=== PATIENT | male | born 1945 | race Caucasian/White ===

== ENCOUNTER 2025-02-13 17:52 | Inpatient (IN) | payer OTHER, MEDICARE ==
[~2025-02-13] VITALS: Ht 170.2 cm; Wt 57.7 kg
[2025-02-13 22:36] VITALS: BP 145/82; PULSE 51; RESP 20; TEMP 97.5; O2SAT 95
[2025-02-13] MEDS ORDERED: mag hydrox/Alum hydrox/simeth 30ml oral suspension PO PRN (23:40)
[2025-02-13] MEDS ORDERED: potassium Cl 20 mEq SR tablet PO PRN ×2 (23:40)
[2025-02-13] MEDS ORDERED: ondansetron/PF 4mg/2ml inj IV PRN (23:40)
[2025-02-13] MEDS ORDERED: potassium Cl 40MEQ/1/2NS 520ml 520 ML IV PRN (23:40)
[2025-02-13] MEDS ORDERED: magnesium sulf-water 2g/50mL 50 ML IV PRN (23:40)
[2025-02-13] MEDS ORDERED: magnesium sulf-water 4G/100mL 100 ML IV PRN (23:40)
[2025-02-13] MEDS ORDERED: magnesium hydroxide 30ml (MOM) UD suspension PO PRN (23:40)
[2025-02-13] MEDS ORDERED: magnesium Cl slow-release 64mg tablet PO PRN (23:40)
--- NOTE | 2025-02-13 23:55 | HISTORY AND PHYSICAL-Residence ---
History & Physical Providers to CC Resident Creating Document: EDEN MONROY, KATHY ~ History of Present Illness Reason for Admit\Complaint: Chest pain History of Present Illness This is a 79-year-old male with a history of hypertension, hyperlipidemia, borderline diabetes, GERD was transferred from [place] for angina. 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 On Tuesday morning he left home at 130 and was driving when he had the 1st episode of chest pain, he describes it as more pressure-like sensation, something pushing down his chest, graded as 8 / 10, lasted about 30 minutes, nonradiating. The chest pain was associated with nausea and diaphoresis. He took two Tums. He completed his work that day and he was feeling fine and went back to work on Tuesday. After he returned home from work on Tuesday at 2:30 p.m. he had another episode of similar chest pressure which was associated with cold sweats and nausea, this time it was more severe and lasted 2 hours. He then decided to go to the hospital. He denies any similar episodes before these events. He denies any shortness of breaths, PND, orthopnea. Denies any leg swellings, palpitations, lightheadedness. Denies any fever, cough. PCP is Dr. Mercado at [facility]. Course at [facility]: He was evaluated for chest pain, troponins were negative, EKG showed first-degree AV block. Lexiscan showed global ischemia in mg coronary artery. Chest x-ray showed mild cardiomegaly. Echo showed normal systolic function, ejection fraction 60-65%, dilated right ventricle, dilated right atrium. He had a stress test in 2016 before his shoulder surgery which was normal Allergies: Coded Allergies: No Known Allergies (Unverified , 02/13/25) Past Medical History Past Medical History Hypertension, on lisinopril 30 mg Hyperlipidemia, on pravastatin 40 mg, could not tolerate atorvastatin Borderline diabetes, currently not on any medications GERD, on omeprazole as needed Past Surgical History Surgical History Comment Right shoulder replacement in 2016 Umbilical hernia repair in 2019 Family history Brother-CAD with two stents Brother diabetes mellitus Sister breast cancer Past Social History Social History Comment Quit smoking 30 years ago Drinks alcohol rarely No history of drug use He is a , retired, currently helping his friend PCP is Dr. Mercado at [facility] Lives with his at home Functionally independent ROS Constitutional: Denies: no symptoms reported, see HPI, chills, diaphoresis, fever, malaise, weakness, other Eyes: Denies: no symptoms reported, see HPI, pain, discharge, blurred vision, double vision, itching, photophobia, redness, tearing, other ENT: Denies: no symptoms reported, see HPI, ear pain, ear bleeding, ear discharge, hearing loss, ear ringing, nose pain, nose bleeding, nose congestion, nose discharge, throat pain, throat swelling, voice change, mouth pain, mouth bleeding, mouth swelling, other Respiratory: Denies: no symptoms reported, see HPI, cough, orthopnea, shortness of breath, SOB with exertion, SOB at rest, stridor, wheezing, hemoptysis, pain with breathing, other Cardiovascular: Reports: chest pain Gastrointestinal: Denies: no symptoms reported, see HPI, abdomen distended, abdominal pain, nausea, vomiting, diarrhea, constipated, melena, hematemesis, hematochezia, rectal bleeding, rectal pain, dysphagia, poor appetite, poor fluid intake, other Genitourinary: Denies: no symptoms reported, see HPI, burning, discharge, dysuria, frequency, flank pain, hematuria, incontinence, pain, decreased urine output, urgency, other Neurological: Denies: no symptoms reported, see HPI, speech problem, headache, dizziness, fainting, tingling, left sided numbness, right sided numbness, left sided weakness, right sided weakness, problems walking, unable to move lower ext, unable to move upper ext, petit mal seizures, tonic-clonic seizures, cognitive dysfunction, other Musculoskeletal: Denies: no symptoms reported, see HPI, pain, swelling, back pain, gout, joint pain, joint swelling, muscle pain, muscle swelling, muscle stiffness, neck pain, other Exam Vitals: Vital Signs Date Time Temp Pulse Resp B/P (MAP) Pulse Ox O2 Delivery O2 Flow Rate FiO2 02/13/25 23:14 51 General: General examination: Awake, alert, oriented, not in acute distress HEENT: Normocephalic and atraumatic. Neck: Trachea is in midline. No masses or JVD Chest: Bilateral normal breath sounds. No crackles, rhonchi or wheezes Cardiovascular: Regular rate and rhythm. No rubs or murmurs Abdomen: Soft, no tenderness, no guarding, no rigidity Bowel sounds present Extremities: No edema, no cyanosis, no clubbing. Central Nervous System: No gross sensory or motor deficits. CN II to XII grossly intact Skin: Warm and dry with findings as mentioned above. Diagnostic Data Last Recorded Lab Results: 02/14/2531 02/14/2531 Advance Care Planning Advanced Care plannin - 30 Minutes (I spent 17 minutes in discussing various resuscitative measures, the patient chose to be full code.) Additional Plan Assessment This is a 79-year-old male with history of hypertension, hyperlipidemia, diabetes, GERD was transferred from [facility] for chest pain. Troponins negative, EKG showed AV block. Lexiscan was positive for global ischemia. Plan Acute CAD Heart score-6 Two episodes of chest pain Troponins negative EKG showed first-degree AV block Lexiscan showed global ischemia Heart healthy diet, NPO from midnight. Telemetry monitoring. Patient received aspirin 324 mg while he was at [facility] Started on aspirin 81 mg daily. Patient has a history of myopathy with a atorvastatin, continue home medication pravastatin 40 mg Started carvedilol 3.125 b.i.d.. Consult Cardiology tomorrow for possible cardiac catheterization Hypertension Blood pressure is in the normal range Continue home medication lisinopril 30 mg daily Hyperlipidemia Lipid panel-at [facility] showed total cholesterol 174, HDL 43, LDL 117 triglycerides 136 Continue home medication pravastatin 40 mg once the med rec is done Diabetes mellitus A1c 6.7 Started on low-dose insulin protocol History of GERD Continue pantoprazole 40 mg p.o. daily Code status: Full code DVT prophylaxis: None, possible cardiac catheterization tomorrow. GI prophylaxis: Pantoprazole Diet: Heart healthy diet, NPO from midnight Lines/tubes: Peripheral IV line Eden Monroy M.D PGY2 Date of Service: Feb 13, 2025 Billing Provider: MENDEL PÉREZ MD Addendum Attestation I agree with the residents assessment and plan as below: Plan: start asa and statin cardiology consult admit to tele restart lisinopril CCT 50 min using HIPPA compliant A/V technology EDEN MONROY, RES Feb 13, 2025 23:55 MENDEL PÉREZ MD Feb 14, 2025 10:51
[2025-02-14] VITALS (12 sets, daily range): BP systolic 105–123; BP diastolic 70–77; PULSE 50–58; RESP 14–20; TEMP 96.9–98.5; O2SAT 92–95
[2025-02-14 00:29] LABS: APTT 29 SECONDS (22-32); INR 1.1 INR
[2025-02-14 01:15] LABS: PRO BRAIN NATRIURETIC PEPTIDE 36.0 PG/ML (0-450)
--- NOTE | 2025-02-14 01:15 | ELECTROCARDIOGRAPH REPORT ---
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 George Valenzuela Measurements Intervals [place] Rate: 55 P: 36 OH: 275 QRS: -31 QRSD: 99 T: 51 QT: 430 QTc: 412 Interpretive Statements Sinus rhythm Prolonged OH interval Left axis deviation Low voltage, precordial leads Electronically Signed On 02-14-2025 9:50:[address] George Valenzuela Please click the below link to view image of tracing.
[2025-02-14 06:16] LABS: CREATININE 0.97 MG/DL (0.60-1.10); TOTAL CARBON DIOXIDE 29.3 MMOL/L (24-32); eCRCL 52 ML/MIN; eGFR 75 ML/MIN
[2025-02-14 06:24] LABS: MEAN PLATELET VOLUME 8.3 FL (7.4-10.4); RED CELL DISTRIBUTION WIDTH 14.7 % (11.5-14.5)
[2025-02-14] MEDS: docusate sod 100mg capsule PO SCH (07:34)
[2025-02-14] MEDS: aspirin 81mg, enteric-coated 1 TAB TABLET.DR PO SCH (07:34)
[2025-02-14] MEDS: PERFLUTREN PROTEIN-A MICROSPHR (Optison) 0.22 MG/ML 3ML VIAL IV ONE (07:45)
[2025-02-14] MEDS: K and/or MAG REPLACEMENT MC SCH (08:00)
[2025-02-14] MEDS ORDERED: carvedilol 6.25mg tablet PO SCH (08:00)
[2025-02-14] MEDS ORDERED: LISI20TA28 PO (09:20)
[2025-02-14] MEDS ORDERED: ATOR40TA PO (09:20)
[2025-02-14] MEDS ORDERED: FAMO20TA47 PO (09:20)
[2025-02-14 10:05] LABS: LEUKOCYTE ESTERASE ,URINE NEGATIVE (Neg); NITRITES, URINE NEGATIVE (Neg); OCCULT BLOOD,URINE TRACE-INTACT (Neg)
[2025-02-14 10:10] LABS: UA COLLECTION TYPE CLN CATCH MIDSTREAM
[2025-02-14 10:12] LABS: MUCUS STRANDS NONE SEEN /LPF (Neg); SQUAMOUS EPITHELIAL CELL,UR NONE SEEN /LPF (FEW)
[2025-02-14 10:24] LABS: URINE AMPHETAMINE SCREEN NEGATIVE (Neg); URINE BARBITUATE SCREEN NEGATIVE (Neg); URINE BENZODIAZEPINES SCREEN NEGATIVE (Neg); URINE CANNABINOID SCREEN NEGATIVE (Neg); URINE COCAINE SCREEN NEGATIVE (Neg); URINE METHADONE SCREEN NEGATIVE (Neg); URINE OPIATE SCREEN NEGATIVE (Neg); URINE PHENCYCLIDINE SCREEN NEGATIVE (Neg)
[2025-02-14] MEDS ORDERED: PRAV40TA17 PO (11:24)
--- NOTE | 2025-02-14 11:38 | RADIOLOGY REPORT ---
EXAM: DI CHEST,SINGLE VIEW Indication: CP Technique: Single frontal view of the chest was obtained Comparison: None FINDINGS: Lines and Tubes: None Lungs: No focal consolidation. Pleura: No effusion. No pneumothorax. Cardiomediastinal contours: Unremarkable Bones: No acute osseous abnormality. IMPRESSION: No acute cardiopulmonary disease.
[2025-02-14 11:43] LABS: CHOL/HDL RATIO 4.6 (0.00-4.99); LDL CHOLESTEROL 104 MG/DL (50-100)
[2025-02-14] MEDS ORDERED: LIDOcaine 1% (10mg/ml) 2ml vial ONE (15:58)
[2025-02-14] MEDS ORDERED: verapamil 2.5 mg/ml inj IV ONE (15:58)
[2025-02-14] MEDS ORDERED: fentaNYL/PF 50MCG/1 ML 2ML syringe ONE (15:59)
[2025-02-14] MEDS ORDERED: heparin 1,000unit/ml 10ml vial 10 ML ONE (15:59)
[2025-02-14] MEDS ORDERED: midazolam 1 mg/ML 2ml injection ONE (15:59)
[2025-02-14] MEDS ORDERED: iohexol 350 MG/ML 50ML vial IV ONE (15:59)
[2025-02-14] MEDS ORDERED: nitroGLYCERIN 500mcg/5mL D5W 5 ML IV ONE (16:00)
[2025-02-14] MEDS ORDERED: heparin 25,000 UNIT/250ml bag 250 ML IV ONE (16:55)
[2025-02-14] MEDS ORDERED: clopidogrel 300mg tablet ONE (17:22)
--- NOTE | 2025-02-14 17:27 | PROGRESS NOTE- Residence ---
Progress Note - Resident Providers to CC Resident Creating Document: FEDERICO WYLIE RES CC: SUMAYA MADDEN MD ~ Antibiotic Timeout Antibiotic Ordered?: No Subjective Patient is examined at bedside. Patient does not have chest pain currently. Patient denies shortness of breath, palpitations, dizziness. Cardiology is consulted in view of positive Lexiscan. The plan to do cardiac catheterization. Objective Vital Signs Date Time Temp Pulse Resp B/P (MAP) Pulse Ox O2 Delivery O2 Flow Rate FiO2 02/14/25 15:00 98.5 58 17 116/71 (86) 94 Room Air Result Diagram: 02/14/2553002/14/25530 General: Alert, awake, oriented, not in acute distress HEENT: PERRLA, no icterus, pallor, lymphadenopathy, carotid bruit Respiratory system: Bilateral vesicular breath sounds heard, no adventitious breath sounds CVS: S1-S2 heard, no murmurs/rubs/gallop GI: A surgical scar present in the abdomen at the umbilical region, Soft, nontender, no organomegaly, no guarding/rigidity, bowel sounds present Neuro: No focal neurological deficits present Extremities: A surgical scar present in the right shoulder, No edema cyanosis clubbing/deformities Skin: Warm and dry Coagulation Studies Laboratory Tests Test 02/13/25 23:53 Prothrombin Time 10.8 SECONDS (9.0-12.0) INR International Normalized Ratio 1.1 INR Activated Partial Thromboplast Time 29 SECONDS (22-32) Coagulation Comments Assessment Assessment A 79-year-old male with PMH of HTN, HLD presented to the ED as a transfer from [place] in view of positive Lexiscan. Patient's troponins were negative, EKG showed normal sinus rhythm, prolonged DE interval, poor R-wave progression. Patient is admitted for the evaluation management of angina equivalent chest pain. Plan Plan Angina equivalent chest pain CAD, workup First-degree heart block Heart score-6 LDL: 104 Continue aspirin 81 mg, pravastatin 40 mg Consulted cardiology, Cardiac catheterization scheduled for today Sublingual nitroglycerin 0.4 mg p.r.n. for chest pain Continue to monitor telemetry GDM T: Continue lisinopril 30 mg daily p.o., Carvedilol has been discontinued in view of low heart rates with the least being in 48 Hypertension Continue lisinopril 30 mg daily Continue to monitor vitals Hyperlipidemia LDL: 107 LDL goal less than 55 Continue pravastatin 40 mg once daily Diabetes mellitus, type 2 A1c 6.5 Low-dose sliding scale insulin GERD Continue pantoprazole 40 mg p.o. daily Code status: Full code Diet: Heart healthy diet DVT prophylaxis: S Anticoagulation: Aspirin Disposition: Continue care in PCU, follow up with the cardiac catheterization results Federico Wylie MD Internal Medicine, PGY 2 Date of Service: Feb 14, 2025 Billing Provider: SUMAYA MADDEN MD Common Visit Codes: [id number] INP/OBS CARE(HIGH) FEDERICO WYLIE, RES Feb 14, 2025 17:27 SUMAYA MADDEN MD Feb 27, 2025 13:21
[2025-02-14] MEDS ORDERED: glucagon, human recombinant 1mg kit SUBCUT PRN (17:30)
[2025-02-14] MEDS ORDERED: dextrose 50%-water 50ml dispensing syringe IV PRN ×2 (17:30)
[2025-02-14] MEDS ORDERED: DEXTROSE 15 GM of carb/4 tabs (each vial/BOTTLE has 4 tablets) PO PRN ×2 (17:30)
--- NOTE | 2025-02-14 17:47 | PROGRESS NOTE ---
Progress Note Cardiology Providers to CC ~ Subjective Subjective 79-year-old male patient came to our facility transferred from [facility] due to chest pain. As per patient on Tuesday while he was driving he had one episode of chest pain, which represented the 1st episode, he described as a pressure type in the level of his chest, 8/10 in intensity, lasted approximately 30 minutes, he did not describe any radiation. Among associated symptoms the patient states some diaphoresis and nausea. He was able to complete his work that day in his symptoms resolved. Upon the next day around 2:30 p.m. he had another episode of chest pain similar to the 1st one. At this time this chest pain was associated with cold sweats, nausea and it was more severe and lasted longer in an average of 2 hours reason for which he decided to go to the hospital where he underwent stress test which showed global ischemia. We were consulted regarding this chest pain and positive stress test. Objective Result Diagram: 02/14/2553002/14/25530 Objective Physical exam: General: Well alert, well oriented, not confused, not agitated, not in acute distress, well cooperated during the physical. HEENT: Conjunctive are pink, sclerae clear, no icterus, pupil is equal in both sides, reactive to light, no ear discharge, no pharyngeal erythema or an edema. Neck: Supple, no JVD, no lymphadenopathy and thyromegaly. Chest: Equal air entry on both lungs, no additional sounds no rhonchi no wheezing at the moment. Cardiovascular: S1-S2 regular sinus rhythm and, regular rate, no gallops, no rubs, no murmurs Abdomen: No visible peristalsis, Bowel sounds present on auscultation, soft, nontender, no guarding, no rigidity, presence of scar at the level of the umbilical area from previous surgery. Extremities: No obvious deformities, no pitting edema bilaterally, capillary refill intact, peripheral pulsations are intact on both sides. Central Nervous System: No focal neurological deficits, no motor or sensory weakness in all 4 extremities, could move all 4 extremities, 2+ deep tendon reflexes, negative Babinski. Musculoskeletal: No joint swelling, deformities, inflammations, and no scoliosis and back tenderness Skin: Warm and dry. Coagulation Studies Laboratory Tests Test 02/13/25 23:53 02/14/25 17:16 Prothrombin Time 10.8 SECONDS (9.0-12.0) INR International Normalized Ratio 1.1 INR Activated Partial Thromboplast Time 29 SECONDS (22-32) Coagulation Comments Activated Clotting Time 199 SEC (101-148) H Problem\Assessment\Plan Additional Plan Possible Coronary artery disease: A: The patient came to the hospital transferred from [facility] due to chest pain and global ischemia evidenced on stress test. Risks and benefits of coronary angiogram explained to the patient who decided for coronary angiogram. Plan: Aspirin 81 mg daily. Clopidogrel 75 mg daily. Pravastatin 40 mg daily. Hypertension: On lisinopril 30 mg daily Dyslipidemia: On pravastatin. Diabetes mellitus, type 2: A1c 6.5 GERD. Code status: Full code Diet: Heart healthy diet DVT prophylaxis: SCDs GI prophylaxis: Pantoprazole 40 mg. Disposition: Risks and benefits explained to the patient who decided for coronary angiogram. We will arrange for the procedure. YOANDY ZAMUDIO MD Feb 14, 2025 17:47
[2025-02-14] MEDS: normal saline 1000ml 1,000 ML IV ONE (19:05)
[2025-02-14] MEDS: INSULIN LISPRO 100 UNIT/ML INSULN.PEN MULTI-DOSE SQ SCH (21:00)
[2025-02-15 02:00] VITALS: BP 113/78; PULSE 54; RESP 17; TEMP 97; O2SAT 96
[2025-02-15 06:00] VITALS: BP 115/73; PULSE 48; RESP 18; TEMP 97; O2SAT 95
[2025-02-15 06:08] LABS: MEAN PLATELET VOLUME 8.1 FL (7.4-10.4); RED CELL DISTRIBUTION WIDTH 14.5 % (11.5-14.5)
[2025-02-15 06:22] LABS: CREATININE 0.89 MG/DL (0.60-1.10); TOTAL CARBON DIOXIDE 26.3 MMOL/L (24-32); eCRCL 57 ML/MIN; eGFR 83 ML/MIN
--- NOTE | 2025-02-15 06:44 | ELECTROCARDIOGRAPH REPORT ---
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 ERA Sue Measurements Intervals [place] Rate: 51 P: 32 GA: 293 QRS: 0 QRSD: 107 T: 34 QT: 444 QTc: 409 Interpretive Statements Sinus rhythm Prolonged GA interval Low voltage, precordial leads RSR' in V1 or V2, right VCD or RVH Baseline wander in lead(s) II,aVF Electronically Signed On 02-15-2025 16:27:[address] ERA Sue Please click the below link to view image of tracing.
[2025-02-15] MEDS: aspirin 81mg, enteric-coated 1 TAB TABLET.DR PO SCH (07:29)
[2025-02-15 08:00] VITALS: RESP 17; O2SAT 95
[2025-02-15] MEDS ORDERED: non-formulary drug (Atorvastatin Calcium* (Lipitor*) 1 TAB) PO SCH (08:00)
[2025-02-15 10:48] VITALS: BP 107/72; PULSE 63; RESP 20; TEMP 97.4; O2SAT 93
--- NOTE | 2025-02-15 12:00 | PROGRESS NOTE- Residence ---
Progress Note - Resident Providers to CC Resident Creating Document: ARTURO SORENSON, RES ~ Antibiotic Timeout Antibiotic Ordered?: No Subjective The patient has been evaluated at bedside. The patient underwent coronary angiogram with stent placement at the level of the OM yesterday. Patient denies chest pain, shortness of breaths, palpitations. Objective Vital Signs Date Time Temp Pulse Resp B/P (MAP) Pulse Ox O2 Delivery O2 Flow Rate FiO2 02/15/25 10:48 97.4 63 20 107/72 (84) 93 Room Air Physical exam: General: Well alert, well oriented, not confused, not agitated, not in acute distress, well cooperated during the physical. HEENT: Conjunctive are pink, sclerae clear, no icterus, pupil is equal in both sides, reactive to light, no ear discharge, no pharyngeal erythema or an edema. Neck: Supple, no JVD, no lymphadenopathy and thyromegaly. Chest: Equal air entry on both lungs, no additional sounds no rhonchi no wheezing at the moment. Cardiovascular: S1-S2 regular sinus rhythm and, regular rate, no gallops, no rubs, no murmurs Abdomen: No visible peristalsis, Bowel sounds present on auscultation, soft, nontender, no guarding, no rigidity, presence of scar at the level of the umbilical area from previous surgery. Extremities: No obvious deformities, no pitting edema bilaterally, capillary refill intact, peripheral pulsations are intact on both sides, right radial area, approach of coronary angiogram without signs of infection, inflammation or hematoma. Central Nervous System: No focal neurological deficits, no motor or sensory weakness in all 4 extremities, could move all 4 extremities, 2+ deep tendon reflexes, negative Babinski. Musculoskeletal: No joint swelling, deformities, inflammations, and no scoliosis and back tenderness Skin: Warm and dry. Result Diagram: 02/15/25 0548 02/15/25 0548 Coagulation Studies Laboratory Tests Test 02/13/25 23:53 02/14/25 17:16 Prothrombin Time 10.8 SECONDS (9.0-12.0) INR International Normalized Ratio 1.1 INR Activated Partial Thromboplast Time 29 SECONDS (22-32) Coagulation Comments Activated Clotting Time 199 SEC (101-148) H Assessment Assessment 79 years old male patient who came to the hospital transferred from [facility] due to chest pain and positive stress test. Plan Plan Coronary artery disease: S/p stent of the OM: A: The patient underwent coronary angiogram on 02/14/2025, OM stent was placed. Radial approach today without signs of infection, inflammation or hematoma. Lipid panel: Triglycerides 211, cholesterol 169, LDL 104, HDL 37. The patient was on pravastatin 40 mg which will be changed to rosuvastatin. Plan: Aspirin 81 mg daily. Clopidogrel 75 mg daily. Rosuvastatin 40 mg daily. Follow-up in Dr. Zamudio's office within 4-6 weeks. Hypertension: On lisinopril 30 mg daily Dyslipidemia: On rosuvastatin. Diabetes mellitus, type 2: A1c 6.5 GERD. Code status: Full code Patient seen and examined by Dr. Rin BRITO Diet: Heart healthy diet DVT prophylaxis: SCDs GI prophylaxis: Pantoprazole 40 mg. Disposition: Continue aspirin 81 mg daily, clopidogrel 75 mg daily. Rosuvastatin 40 mg daily. Follow-up in Dr. Zamudio's office within 4-6 weeks. Arturo Adame Internal Medicine Resident [facility] Date of Service: Feb 15, 2025 Billing Provider: YOANDY ZAMUDIO MD, FRANCO LUIS, RES Feb 15, 2025 12:00 YOANDY ZAMUDIO MD Feb 15, 2025 16:45
[2025-02-15] MEDS ORDERED: NITR0.4T51 SL (13:09)
[2025-02-15] MEDS ORDERED: METF-1203 PO (13:09)
--- NOTE | 2025-02-15 17:47 | DISCHARGE SUMMARY-Residence ---
Discharge Summary Providers to CC Resident Creating Document: FEDERICO WYLIE RES CC: SUMAYA MADDEN MD ~ Discharge Summary Admission Diagnosis: Acute CAD Hospital Course DATE OF ADMISSION: 02/13/25 DATE OF DISCHARGE: 02/15/25 Discharge Diagnosis\Comment: CAD s/p cardiac catheterization and stent placement HTN HLD Diabetes mellitus type 2 GERD Operations\Procedures: Cardiac catheterization and stent placement Consultants: Dr. Sue (cardiology) Complications: None Condition on DC: Stable New Medications: Metformin HCl (Metformin HCl) 500 Mg Tablet 1 TAB PO DAILY for 30 Days, #30 TAB Nitroglycerin SL* (Nitrostat SL*) 0.4 Mg Tablet 0.4 MG SL Q5MIN PRN for chest pain for 15 Days, #30 TAB Continued Medications: Famotidine (Pepcid AC) 20 Mg Tablet 1 TAB PO DAILY for 30 Days, #30 TAB 0 Refills Lisinopril (Lisinopril) 20 Mg Tablet 1.5 TAB PO DAILY for 30 Days, #30 TAB Discontinued Medications: Pravastatin Sodium (Pravastatin Sodium) 40 Mg Tablet 1 TAB PO DAILY for 30 Days, #30 TAB 0 Refills Discharge Summary: A 79-year-old male with PMH of HTN, HLD presented to the ED in view of chest discomfort of about two episodes very characteristic of angina the day prior to the admission. Patient was transferred from [place] where his troponins were negative, EKG did not show any changes but Lexiscan was positive for global akinesia. Therefore patient was transferred to [facility]. Cardiac catheterization was performed and stent was placed in OM1. All other medical conditions were managed as per home meds. Patient was not started on beta stanley as part of GDM T in view of low heart rate and type 1 heart block. Patient is hemodynamically stable for discharge. Physical examination at discharge: General: Alert, awake, oriented, not in acute distress HEENT: PERRLA, no icterus, pallor, lymphadenopathy, carotid bruit Respiratory system: Bilateral vesicular breath sounds heard, no adventitious breath sounds CVS: S1-S2 heard, no murmurs/rubs/gallop GI: A surgical scar present in the abdomen at the umbilical region, Soft, nontender, no organomegaly, no guarding/rigidity, bowel sounds present Neuro: No focal neurological deficits present Extremities: A surgical scar present in the right shoulder, No edema cyanosis clubbing/deformities Skin: Warm and dry Labs at discharge: WBC: 6.7, H/H: 15.9/46.3, platelet count: 186 Sodium: 142, potassium: 4.2, BUN: 17, creatinine: 0.89 Imaging: Echo at outside hospital: EF: 60-65%, dilated right atrium Chest x-ray: No acute cardiopulmonary disease Patient is discharged home with the following recommendations: Follow up with primary care Doctor in 1-2 weeks, Follow up with DR Sue in 4-6 weeks, Call for appointment [phone]. We started you on metformin in view of new onset diabetes mellitus Please take aspirin and Plavix for 12 months, Crestor 40 mg daily. These three medications have been prescribed to you by Dr. Sue. For GDM T and hypotension we continuing lisinopril 30 mg once daily, we are unable to start a beta stanley low dose in view of heart rate less than 60. Please discuss this with Dr. Sue when you see him for an appointment. Return to ER in case of chest pain, palpitations, headache, dizziness. *Problems/Diagnosis: (1) Coronary artery disease Total Time Spent on D/C: > 30 Minutes Date of Service: Feb 15, 2025 Billing Provider: SUMAYA MADDEN MD Common Visit Codes: 75843-FIL/OBS DISCH DAY >30min FEDERICO WYLIE, RES Feb 15, 2025 13:11 SUMAYA MADDEN MD Feb 27, 2025 13:21
--- NOTE | 2025-03-14 10:38 | CARDIOLOGY REPORT ---
DICTATING PHYSICIAN: ERA Sue MD CARDIAC CATHETERIZATION GENDER: Male. AGE: 79 years. HEIGHT: . INDICATION: The patient is a 79-year-old obese male with hypertension, hyperlipidemia, borderline diabetes, GERD, transferred from [facility] with angina. The patient woke up at 1 a.m. on 02/13/2025 with chest pain, pressure-like sensation, 8/10 as well as nausea and diaphoresis, but he still went to work. While coming back home, he had another episode, went to [facility] where he had a myocardial perfusion scan showed reversible defect and was transferred here after discussing risks, benefits, alternative options. The patient prefers to proceed with coronary angiography. Risks, benefits and alternative options discussed and informed consent was obtained. PRIMARY PHYSICIAN: Dr. Mercado at [facility]. CLINICAL ASSOC: ERA Sue MD PROCEDURE TECHNIQUE: The patient underwent left heart catheterization, right radial approach, 6-Nigerian right radial sheath, post-procedure access site hemostasis secured with a right radial band. The patient tolerated the procedure well. COMPLICATIONS: None. PROCEDURES DONE: 1. Ultrasound-guided right radial artery visualization and access. 2. Left heart catheterization. 3. LVG. 4. Coronary cineangiography. 5. PTCA stenting of the posterior narrowing obtuse marginal branch. 7. Conscious sedation time of 60 minutes. HEMODYNAMICS: Aortic systolic 119, diastolic 69, mean 61 mmHg, LVEDP 11 mmHg. There is no significant gradient across the aortic valve. LEFT VENTRICULOGRAM: Overall left ventricular systolic function normal with an LV ejection fraction of 60% to 65%. CORONARY CINEANGIOGRAPHY: Left main coronary artery is a large caliber vessel arising from left aortic sinus engaged with a JL4 catheter from right radial approach. Distal left main has an eccentric 40% narrowing. LAD is a medium caliber vessel arising at the bifurcation of left main coronary artery courses through the anterior interventricular groove and ends at the apex. LAD is mild to moderately diffusely narrowed and there are areas of 30% narrowing in the proximal and mid portion. The LAD diameter is only about 2.5 mm. Diagonal is a high diagonal/ramus is a 2.25 mm caliber device in two divisions with mild tissue narrowing. Circumflex is a dominant large caliber vessel with an eccentric pocket with approximately 40% narrowing. OM1 is 2 mm caliber with minimal luminal irregularities. OM2 is 2.75 mm caliber with proximal 98% narrowing. After that, it continues as PDA which is a 2 mm with mild luminal irregularities. Right coronary artery is a nondominant small caliber vessel, sub-selectively engaged, probably arising from non-coronary sinus with mild luminal irregularities. PTCA STENTING OF THE OM2: A 6-Nigerian XB RCA showed good support. The lesion crossed with a PT2 moderate wire. The lesion was angioplastied with 2.5 Trek balloon at 8-9 atmospheres. Lesion was stented at 2.75/12 mm Janusz Greenwood balloon at 12 followed by 14 atmosphere. Post-procedure 0% residual with TOM 3 flow. The patient tolerated well the procedure with no complication. IMPRESSION: A 79-year-old male with LVEF 65%. LVEDP of 11 mmHg with no significant gradient across the aortic valve. Left main distal eccentric 40% narrowing. LAD mild to moderately diffusely diseased with areas of 30% narrowing in the approximate portion, diagnosed with mild luminal irregularities, dominant circumflex hepatic with approximately 40% narrowing, OM2 with 98% narrowing, which was successfully angioplastied and stented with 2.75/12 mm Resolute [place] stent with 0% residual stenosis and good antegrade flow, nondominant RCA with mild luminal irregularities. RECOMMENDATIONS: Continued aggressive coronary risk factor modification, namely low fat, low cholesterol diet, maintaining ideal body weight, keeping LDL less than 70 mg percent, regular exercise program. ERA Sue MD TID: [id number] RECEIPT: [id number] /[facility] cc: Dr. Mercado,
== END 2025-02-15 14:44 | disposition home or self-care (01) | DRG 322 ==
LOC: PCU 3S 22:46
PROVIDERS: ADMIT Family Medicine; ATTEND Family Medicine
PROC: 027034Z Dilation of Coronary Artery, One Artery with Drug-eluting Intraluminal Device, Percutaneous Approach (ICD-10-PCS; principal; 2025-02-14)
PROC: 4A023N7 Measurement of Cardiac Sampling and Pressure, Left Heart, Percutaneous Approach (ICD-10-PCS; 2025-02-14)
PROC: B2111ZZ Fluoroscopy of Multiple Coronary Arteries using Low Osmolar Contrast (ICD-10-PCS; 2025-02-14)
PROC: B2151ZZ Fluoroscopy of Left Heart using Low Osmolar Contrast (ICD-10-PCS; 2025-02-14)
DX: I25.118 Atherosclerotic heart disease of native coronary artery with other forms of angina pectoris (principal); K21.9 Gastro-esophageal reflux disease without esophagitis; I10 Essential (primary) hypertension; E78.5 Hyperlipidemia, unspecified; E11.9 Type 2 diabetes mellitus without complications; Z96.611 Presence of right artificial shoulder joint
CPT/HCPCS: 93458; C9600; 36415; 71045; 76937; 80048; 80061; 80305; 81001; 82948; 83036; 83735; 83880; 85025; 85347; 85610; 85730; 87081; 93005; 99152; 99153; A5200; A6258; C1725; C1751; C1769; C1874; C1894; G0378; J1644; J1815; J2003; J2250; J2470; J3010; J3490; J7030; Q9967

== ENCOUNTER 2025-03-16 13:26 | Inpatient (IN) | payer OTHER, MEDICARE ==
[~2025-03-16] VITALS: Ht 170.2 cm; Wt 101.2 kg
[~2025-03-16 13:26] MED LIST: FAMO20TA47 PO; LISI20TA28 PO; METF-1203 PO; NITR0.4T51 SL
--- NOTE | 2025-03-16 13:42 | ELECTROCARDIOGRAPH REPORT ---
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 Silverio Garvin Measurements Intervals [place] Rate: 64 P: 35 ID: [id number] QRS: -15 QRSD: 96 T: 67 QT: 406 QTc: 419 Interpretive Statements Sinus rhythm Prolonged ID interval Borderline left axis deviation Electronically Signed On 03-22-2025 7:51:[address] Silverio Garvin Please click the below link to view image of tracing.
--- NOTE | 2025-03-16 13:44 | Physician Documentation ---
History of Present Illness ~ Chief Complaint: Chest Pain Stated Complaint: CHEST PAIN Time Seen by MD: 13:46 OK to notify your PCP?: Yes Source: patient Mode of Arrival: POV Exam Limitations: no limitations HPI 79-year-old male presents for chest pain which starts in the left lower portion of the chest and radiates to the right side and then down into his abdomen. He did have a stent placed with Dr. Sue 1 month ago. He is taking 2 baby aspirin as well as Plavix. He also had low blood sugar in the 60s this morning. He is taking metformin. He is last saw Dr. Sue mostly on Tuesday with a normal echo. Denies shortness of breath. + diaphoresis during the episode. He states that he took a SL NTG and symptoms resolved. Medication Reconciliation Allergies: Coded Allergies: No Known Allergies (Unverified , 03/16/25) Scheduled Famotidine (Pepcid AC), 1 TAB PO DAILY, (Reported) Lisinopril (Lisinopril), 1.5 TAB PO DAILY, (Reported) Metformin HCl (Metformin HCl), 1 TAB PO DAILY Scheduled PRN Nitroglycerin SL* (Nitrostat SL*), 0.4 MG SL Q5MIN PRN for chest pain Review of Systems All Other Systems at this time: Reviewed and Negative Physical Exam Vital Signs: RN Vital Signs have been reviewed: Yes, Temperature: 96.4, Source: Temporal, Heart Rate: 63, Respiratory Rate: 22, BP: 146/75, Pulse Oximetry: 97, Weight: 101.200 Oxygen Flow Rate: 0 Pulse Oximetry Reflects: adequate oxygenation Physical Exam General: Alert, no distress. HEENT: No injection, moist mucous membranes. Neck: Full range of motion. Respiratory: No respiratory distress, equal chest rise and fall. Chest: No accessory muscle use. Cardiovascular: Regular rate and rhythm. Gastrointestinal: Nondistended. Extremities: Normal range of motion, no deformity. Neurologic: Oriented x4. Psychiatric: Normal mood and affect. Skin: Normal color, warm and dry. Progress Results/Orders Reviewed/noted all lab results: Yes Results/Orders Orders - ELLIE SILVA MD Chest,Single View (03/16/25 13:40) Monitor (03/16/25 13:40) Saline Lock (03/16/25 13:40) Oxygen (03/16/25 13:40) Hs Troponin I W Calculations (03/16/25 16:40) Electrocardiogram (03/16/25 13:41) Cta Aorta Disection (03/16/25 13:50) Completed Orders - ELLIE SILVA MD Chest,Single View (03/16/25 13:40) Cbc/Diff (03/16/25 13:40) BMP (03/16/25 13:40) PBNP (03/16/25 13:40) Electrocardiogram (03/16/25 13:40) Hs Troponin I W Calculations (03/16/25 13:40) Hs Troponin I W Calculations (03/16/25 15:40) Cta Aorta Disection (03/16/25 13:50) Vital Signs 03/16/25 03/16/25 03/16/25 03/16/25 13:33 13:57 14:03 14:04 Temp 96.4 Pulse 63 66 Resp 22 27 24 B/P (MAP) 146/75 135/75 (95) Pulse Ox 97 96 97 O2 Delivery Room Air* O2 Flow Rate 0 0 0 FiO2 21 Laboratory Tests Test 03/16/25 13:37 03/16/25 13:41 03/16/25 15:44 White Blood Count 9.9 Red Blood Count 5.28 Hemoglobin 16.0 Hematocrit 47.7 Mean Corpuscular Volume 90.3 Mean Corpuscular Hemoglobin 30.4 Mean Corpuscular Hemoglobin Concent 33.6 Red Cell Distribution Width 14.3 Platelet Count 187 Mean Platelet Volume 8.0 Neutrophils (%) (Auto) 77.1 H Lymphocytes (%) (Auto) 8.9 L Monocytes (%) (Auto) 10.1 Eosinophils (%) (Auto) 3.1 Basophils (%) (Auto) 0.8 Neutrophils # (Auto) 7.6 Lymphocytes # (Auto) 0.9 L Monocytes # (Auto) 1.0 H Eosinophils # (Auto) 0.3 Basophils # (Auto) 0.1 CBC Comment Sodium Level 139 Potassium Level 4.0 Chloride Level 103 Carbon Dioxide Level 30.0 Anion Gap 6 L Blood Urea Nitrogen 14 Creatinine 0.99 Estimated GFR/1.73 m2 73 BUN/Creatinine Ratio 14.1 Glucose Level 136 H Calcium Level 8.5 Troponin I High Sensitivity 7 8 Pro-B-Type Natriuretic Peptide < 30 Albumin 4.0 Chemistry Comments Glucometer 181 H Troponin I High Sens Percent Delta 14 Troponin I Hi Sens Absolute Change 1 EKG/XRAY/CT/US/VASC/MRI EKG : Intepreting Monitor?: Yes Indication: chest pain EKG: NSR EKG Blocks: none [place]: normal Hypertrophy: none Chest X-Ray : Interpreted By: self Views: 1 VIEW Indication: chest pain Lungs: normal Mediastinum: normal Ribs/Bones: normal Abdomen: normal Impression: no acute disease Heart Score: Heart Score Response (Comments) Value History Moderate Suspicious 1 EKG Normal 0 Age >65 2 Risk Factors >3 or Hx ASHD 2 Troponin Normal limit 0 Total 5 Medical Decision Making Additional information obtaine: old records, family Findings While here in the ED, he remained hemodynamically normal with ABC's intact and in NAD. He is afebrile and nontoxic. I reviewed and interpreted his EKG and it shows NSR without signs suggestive of acute myocardial injury or ischemia. TnI normal. I reviewed his CXR and it is without radiographic evidence of an acute cardiopulmonary process. Lytes are within normal ranges. No leukocytosis or left shift. He described the pain as sharp and originating in his lower chest/upper ABD area and radiating through to his back. This is different than the chest pain he experienced when he had an OK a month ago. Concern was for a possible dissection. CTA Chest/ABD/Pelvis obtained to further evaluate. CT showed is without signs suggesting an impending acute vascular catastrophe As he describes this a pain significant enough to make his diaphoretic and resolved with NTG, will admit for monitoring and Cardiology evaluation. Heart Score: 5 Differential Dx:Considerations: Include: angina, aortic dissection, chest wall pain, CHF, gastritis, myocardial infarction, pericarditis, pleuritis, pneumonia, pulmonary embolus Departure Disposition: ADMITTED INPATIENT Admitted to Inpatient Unit: yes, to hospitalist Admission Level of Care: Med/Surg with Tele Impression: Primary Impression: Chest pain Additional Impression: Chest pain at rest Condition: Stable Referrals: NO PRIMARY CARE PROVIDER (PCP) Education Educated: Patient, Family Educated regarding: diagnosis, treatment Additional Comment Medical Screen Exam This patient recieved a medical screening examination. After reviewing the individual's medical complaints with presenting symptoms and performing an appropriate physical examination, it was determined that no immediate life-threa tening emergency medical condition is present. This individual is also not a women having contractions. ACF Form Admit Criteria Met or Not Met: YES Signature Scribe Signature: N/A Attestation: N/A PAIGE CROCKETT Mar 16, 2025 13:44 ELLIE SILVA MD Mar 16, 2025 14:05
[2025-03-16 13:51] LABS: MEAN PLATELET VOLUME 8.0 FL (7.4-10.4); RED CELL DISTRIBUTION WIDTH 14.3 % (11.5-14.5)
--- NOTE | 2025-03-16 14:07 | RADIOLOGY REPORT ---
CHEST RADIOGRAPH REASON FOR EXAM: Chest pain COMPARISON: DI CHEST,SINGLE VIEW on DOS: 02/14/25 TECHNIQUE: One view of the chest is provided FINDINGS: The cardiomediastinal silhouette is borderline enlarged, possibly secondary to low inspiratory volumes. Low inspiratory volumes also cause crowding and exaggeration of the pulmonary markings. No lobar consolidation. There is no large pleural effusion. There is no pneumothorax. There is partial visualization of right shoulder arthroplasty. IMPRESSION: Low inspiratory volumes cause crowding and exaggeration of the pulmonary markings. No lobar consolidation. No large pleural effusion.
[2025-03-16 14:21] LABS: CREATININE 0.99 MG/DL (0.60-1.10); PRO BRAIN NATRIURETIC PEPTIDE < 30 PG/ML (0-450); TOTAL CARBON DIOXIDE 30.0 MMOL/L (24-32); eCRCL 58 ML/MIN; eGFR 73 ML/MIN
--- NOTE | 2025-03-16 15:00 | RADIOLOGY REPORT ---
Indication: chest and ABD pain radiating through to back. Technique: CT axial images of the thoracic, abdominal aorta are obtained with intravenous contrast per angiogram protocol. Coronal and sagittal reformats were obtained. Radiation Dose Information: CTDI volume is 26 mGy. Dose-length product is 1509 mGy*cm Comparison: None FINDINGS: Heart size at the upper limits of normal. Coronary artery calcification disease. No large defect within the main left right pulmonary arteries. The ascending aorta measures 3.6 cm. Aortic arch atherosclerotic disease. Descending thoracic aorta measures 2.8 cm. Abdominal aortic atherosclerotic calcification disease without aneurysmal dilatation. Infrarenal abdominal aorta measures 1.7 cm. The common and external iliac arteries demonstrate no high- grade stenoses. The trachea is patent. There is a linear septation within the trachea. No pneumothorax. 4 mm right upper lobe solid nodule. 4 mm left upper lobe solid nodule. 3 mm left upper lobe ground-glass nodule. No supraclavicular or axillary lymphadenopathy. Right hilar lymph node measuring 2.1 cm. Left adrenal nodule measuring 3.1 cm. The adrenal gland is unremarkable. Spleen, pancreas unremarkable. Hepatic steatosis. Left hepatic lobe hypervascular lesion measuring 9 mm. Cholelithiasis. No hydronephrosis. Left renal cyst measuring 1.8 cm. Small hiatal hernia. Stomach partially distended. Small bowel loops are normal in caliber. Colonic diverticular disease. Moderate volume stool in the colon. Bladder distended. Ccpm-iz-nkwpytmb bilateral sacroiliac degenerative joint disease. Right shoulder arthroplasty. Severe degenerate changes left shoulder. Moderate thoracolumbar degenerative disc disease. IMPRESSION: No evidence for aortic aneurysmal dilatation/ dissection. Atherosclerotic disease, coronary artery calcification disease. Pulmonary nodules up to 4 mm. Recommend follow-up per Fleischner society criteria. Right hilar lymph node measuring 2.1 cm which could be secondary to infectious, inflammatory, neoplastic/metastatic etiology. Cholelithiasis. Left hepatic lobe hypervascular lesion measuring 9 mm, possibly hemangioma. Recommend multiphasic MRI abdomen which can be done in the nonemergent setting. Bladder distention. Colonic diverticular disease. Indeterminate left adrenal nodule measuring 3.1 cm which can be further evaluated with MRI abdomen, adrenal mass protocol. Other findings as described
[2025-03-16] MEDS ORDERED: magnesium sulf-water 4G/100mL 100 ML IV PRN (16:45)
[2025-03-16] MEDS ORDERED: mag hydrox/Alum hydrox/simeth 30ml oral suspension PO PRN (16:45)
[2025-03-16] MEDS ORDERED: magnesium sulf-water 2g/50mL 50 ML IV PRN (16:45)
[2025-03-16] MEDS ORDERED: potassium Cl 40MEQ/1/2NS 520ml 520 ML IV PRN (16:45)
[2025-03-16] MEDS ORDERED: potassium Cl 20 mEq SR tablet PO PRN ×2 (16:45)
[2025-03-16] MEDS ORDERED: bisacodyl 10mg suppository rectal RC PRN (16:45)
[2025-03-16] MEDS ORDERED: HYDROcodone/acetaminophen 10/325mg tab PO PRN (16:45)
[2025-03-16] MEDS ORDERED: ROSU40TA89 PO (16:47)
[2025-03-16] MEDS ORDERED: CLOP75TA34 PO (16:47)
[2025-03-16] MEDS ORDERED: ASPI-1265 PO (16:47)
--- NOTE | 2025-03-16 17:46 | HISTORY AND PHYSICAL ---
History & Physical Providers to CC ~ History of Present Illness Reason for Admit\Complaint: Chest pain eval for ACS History of Present Illness This is a 79-year-old who presents to the ED with chest pain and diaphoresis which is slightly worse than what he experienced in January when he went and had a coronary angiogram with Dr. Sue newsagent - he had a 98% narrowing of the obtuse marginal and had a stent placed the patient also had 30% narrowing of the LAD and 40% narrowing of the circumflex. The patient was placed on aspirin 162 mg daily along with Plavix. The patient symptoms today include substernal chest pressure lasting 15 minutes traveling to the back and inferiorly along with diaphoresis and shortness of the breath. The patient did take a nitroglycerin this morning with some relief. The patient's EKG was negative for any acute ischemia and serial high sensitivity troponins are negative x 3 (7,8,9). 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 Sue who has a agreed to consult on the patient. Allergies: Coded Allergies: No Known Allergies (Unverified , 03/16/25) Home Medications Home Medications Active Metformin HCl 500 Mg Tablet 1 Tab PO DAILY 30 Days Nitrostat SL* (Nitroglycerin) 0.4 Mg Tablet 0.4 Mg SL Q5MIN PRN 15 Days Reported Rosuvastatin Calcium 40 Mg Tablet 1 Tab PO DAILY 30 Days Clopidogrel (Clopidogrel Bisulfate) 75 Mg Tablet 1 Tab PO DAILY 30 Days Do not stop medication unless instructed by prescriber. Aspirin 81 Mg Tab.chew 1 Tab PO DAILY 30 Days Pepcid AC (Famotidine) 20 Mg Tablet 1 Tab PO DAILY 30 Days Lisinopril 20 Mg Tablet 1.5 Tab PO DAILY 30 Days Past Medical History Past Medical History Hypertension Hyperlipidemia Wkc-ihwpelr-fukunhaqj diabetes mellitus GERD Coronary artery disease Past Surgical History Surgical History Comment Right total shoulder arthroplasty Umbilical hernia repair Angioplasty with stent Family History Family History: FH: CHF (congestive heart failure) MOTHER FH: breast cancer Sister FH: coronary artery disease FATHER Brother FH: diabetes mellitus Brother Past Social History Social History Comment Quit smoking cigarettes 30 years ago, rarely drinks alcohol, denies any illicit drug use. Full code status. Lives with a independently. PCP is Dr. Mercado in the [facility]. ROS ROS Except for positives in the HPI the rest of the 14 point review systems is negative Exam Vitals: Vital Signs Date Time Temp Pulse Resp B/P (MAP) Pulse Ox O2 Delivery O2 Flow Rate FiO2 03/16/25 14:04 24 03/16/25 14:03 97 Room Air* 0 21 03/16/25 13:57 66 03/16/25 13:33 96.4 General: Gen. 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 Sue cardiology is consulted # coronary artery disease Status post angioplasty stent to the obtuse marginal branch Continue aspirin Continue Plavix # type 2 diabetes mellitus Hyper and hypoglycemic protocol # hyperlipidemia Continue Crestor # DVT prophylaxis SCDs Aspirin and Plavix I spent a total of 17 minutes on reviewing various resuscitative measures/ ACP with the patient at the time of admission. The patient has decided on a full code status. Date of Service: Mar 16, 2025 Billing Provider: STEPHAN BOLTON DO Common Visit Codes: 94202-STCNVCM INP/OBS CARE (HIGH) Secondary Visit Codes: 99916-[id number] CARE PLAN 30 MINUTES STEPHAN BOLTON DO Mar 16, 2025 17:46
[2025-03-16] MEDS: normal saline 1000ml 1,000 ML IV SCH (17:52)
[2025-03-16] MEDS ORDERED: dextrose 50%-water 50ml dispensing syringe IV PRN ×2 (17:55)
[2025-03-16] MEDS ORDERED: glucagon, human recombinant 1mg kit SUBCUT PRN (17:55)
[2025-03-16] MEDS ORDERED: DEXTROSE 15 GM of carb/4 tabs (each vial/BOTTLE has 4 tablets) PO PRN ×2 (17:55)
[2025-03-16 19:00] VITALS: BP 132/84; PULSE 62; RESP 18; TEMP 97; O2SAT 99
[2025-03-16] MEDS: docusate sod 100mg capsule PO SCH (20:00)
[2025-03-16] MEDS: K and/or MAG REPLACEMENT MC SCH (20:00)
[2025-03-16] MEDS: INSULIN LISPRO 100 UNIT/ML INSULN.PEN MULTI-DOSE SQ SCH (21:00)
[2025-03-16 22:00] VITALS: BP 140/80; PULSE 54; RESP 21; TEMP 98.1; O2SAT 97
[2025-03-17] VITALS (9 sets, daily range): BP systolic 103–135; BP diastolic 52–77; PULSE 55–77; RESP 13–18; TEMP 96.9–98.2; O2SAT 93–96
[2025-03-17 06:30] LABS: MEAN PLATELET VOLUME 7.9 FL (7.4-10.4); RED CELL DISTRIBUTION WIDTH 14.1 % (11.5-14.5)
[2025-03-17 06:43] LABS: CREATININE 1.04 MG/DL (0.60-1.10); TOTAL CARBON DIOXIDE 30.1 MMOL/L (24-32); eCRCL 56 ML/MIN; eGFR 69 ML/MIN
[2025-03-17] MEDS: isosorbide mononitrate 30mg tab.SR.24H PO ONE (14:43)
--- NOTE | 2025-03-17 14:56 | PROGRESS NOTE ---
Progress Note Cardiology Providers to CC ~ Subjective Subjective Patient seen and examined this afternoon. He was also seen in emergency room yesterday with his . Patient has not had any recurrence of symptoms of chest pain sweating shortness of breath since arrival. Objective Result Diagram: 03/17/2560403/17/25604 Objective General: Normal body habitus, no acute distress, HEENT: Sclerae clear, PERRL, gums without lesions or bleeding, oropharynx clear without erythema or exudate. Neck: Supple without enlargement of the thyroid, or lymphadenopathy, Chest: Normal size and shape, no tenderness, nonlabored breathing, Breath sounds clear to auscultation. Heart: Regular in rate and rhythm, S1 and S2 normal, no S3-S4 or murmurs. Abdomen: Soft, nontender, no organomegaly, bowel sounds present. Extremities: No edema cyanosis or clubbing. Problem\Assessment\Plan Additional Plan 1. 79-year-old male with hypertension hyperlipidemia borderline diabetes with CAD status post PTCA stenting of obtuse marginal branch on 03/14/2025. He received 2.75/12 mm resolute torrie stent with 0% residual stenosis with good antegrade flow. Continue uninterrupted aspirin and Plavix and statin at least for one year. Now patient has presented with recurrent chest pain. Troponins are negative. Recommend addition of Imdur 30 mg p.o. q.day. Option of further evaluation with myocardial perfusion scan was discussed with patient and his . Since they live in [place] which is remote both prefer To proceed with the same. We will schedule for the same. 2. Hypertension hyperlipidemia and borderline diabetes: Counseled on the coronary risk factor modification to keep LDL less than 55 mg %, systolic blood pressure less than 130 mm of mercury, and Hemoglobin A1c less than 7%. 3. Intermittent hematuria after being on Plavix: Suspect genitourinary lesion. Recommend follow up with Urology. 4. Other comorbidities include mild obesity. YOANDY ZAMUDIO MD Mar 17, 2025 14:56
--- NOTE | 2025-03-17 15:00 | ELECTROCARDIOGRAPH REPORT ---
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 ERA Sue Measurements Intervals [place] Rate: 66 P: 17 [place]: 285 QRS: -17 QRSD: 95 T: 59 QT: 395 QTc: 414 Interpretive Statements Sinus rhythm Prolonged [place] interval Borderline left axis deviation Electronically Signed On 03-18-2025 15:39:[address] ERA Sue Please click the below link to view image of tracing.
--- NOTE | 2025-03-17 17:51 | ELECTROCARDIOGRAPH REPORT ---
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 ERA Sue Measurements Intervals [place] Rate: 63 P: 12 [place]: 285 QRS: -26 QRSD: 106 T: 9 QT: 428 QTc: 439 Interpretive Statements Sinus rhythm Prolonged [place] interval Borderline left axis deviation Electronically Signed On 03-18-2025 15:39:[address] ERA Sue Please click the below link to view image of tracing.
--- NOTE | 2025-03-17 18:37 | PROGRESS NOTE ---
Daily Progress Note Providers to CC ~ Antibiotic Timeout Antibiotic Ordered?: No Subjective the patient continues to experience intermittent chest pain though not as significant. The patient is evaluated by Dr. Sue trimming department blocker's stress test for tomorrow started the patient Imdur 30 mg a day Objective Vital Signs Date Time Temp Pulse Resp B/P (MAP) Pulse Ox O2 Delivery O2 Flow Rate FiO2 03/17/25 17:50 59 18 103/52 (69) 94 Room Air 03/17/25 15:00 97.1 03/17/25 02:00 0.0 21 Result Diagram: 03/17/2560403/17/25604 Gen. 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 Sue cardiology is following in ordered a Lexiscan stress test for tomorrow morning 03/18/2025 and added Imdur 30 mg p.o. daily # coronary artery disease Status post angioplasty stent to the obtuse marginal branch Continue aspirin Continue Plavix # type 2 diabetes mellitus Hyper and hypoglycemic protocol # hyperlipidemia Continue Crestor # DVT prophylaxis SCDs Aspirin and Plavix Date of Service: Mar 17, 2025 Billing Provider: STEPHAN BOLTON DO Common Visit Codes: [id number] INP/OBS CARE(HIGH) STEPHAN BOLTON DO Mar 17, 2025 18:37
[2025-03-18] VITALS (12 sets, daily range): BP systolic 89–146; BP diastolic 48–75; PULSE 53–74; RESP 8–22; TEMP 97.1–98.3; O2SAT 92–98
--- NOTE | 2025-03-18 06:07 | CONSULTATION ---
DATE OF CONSULTATION: 03/16/2025 DICTATING PHYSICIAN: ERA Sue MD CARDIOLOGY CONSULTATION PRIMARY MEDICAL DOCTOR: [facility]. DISPATCHER RELAY: ERA Sue MD REASON FOR EVALUATION: Chest pain, shortness of breath. IDENTIFICATION: This is a 79-year-old male. HISTORY OF PRESENT ILLNESS: The patient is a 79-year-old male with history of diabetes, hypertension, hyperlipidemia and CAD, status post coronary artery stenting, who has come with chest pain and shortness of breath. The patient presented to [facility] on 02/12/2025 with chest pain and shortness of breath. He underwent myocardial perfusion scan, which showed lateral reversible defect. An echocardiogram done there showed ejection fraction 60-65% with mild TR, and subsequently, the patient was transferred to [facility] for further evaluation. After that, he was evaluated by me. After discussing risks, benefits and alternative options, the patient decided to proceed with the coronary angiography, found to have severe narrowing of the principal obtuse marginal branch, which was successfully angioplastied and stented with drug-coated stent. The patient was started on aspirin and Plavix. Beta-blockers were not given because of his bradycardia. Subsequently, the patient was discharged home. Apparently, the patient complained of chest pain in the left lower portion of his chest radiating to the right side and down to his abdomen. However, he was also seen in the office on 03/13/2025. At that time, he was doing well and all his medications were continued. In view of his symptoms, the patient is being hospitalized by Dr. Montiel. The patient was seen and examined in the Emergency Room. at bedside. Currently, the patient was very symptomatic. However, the patient after discharge has been doing well and has been able to ambulate around the house, NYHA dyspnea class 2-3. No history of sustained palpitations. No history of congenital or rheumatic heart disease. PAST MEDICAL HISTORY: 1. Diabetes. 2. Hypertension. 3. Hyperlipidemia. 4. CAD, status post coronary artery stenting. 5. Obesity. 6. Ulcerative colitis. PAST SURGICAL HISTORY: Right shoulder surgery in 2016 and umbilical hernia repair in 2019. FAMILY HISTORY: Father at age 93, diagnosed with heart disease. Mother at age 80, diagnosed with heart disease. Brother is alive, diagnosed with diabetes and heart disease. SOCIAL HISTORY: The patient smoked from age 23 to 43. Does not use any substances. The patient lives in [place] with his . 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 Alcohol, he is a social drinker. MEDICATIONS AT HOME: Pepcid AC 10 mg p.o. daily, mg p.o. q. day, Crestor 40 mg p.o. at bedtime, aspirin 81 mg p.o. daily, metformin 500 mg p.o. daily and Plavix 75 mg p.o. daily. REVIEW OF SYSTEMS: HEENT: Wearing reading glass. No hearing impairment. RESPIRATORY: No exertional shortness of breath. MUSCULOSKELETAL: Occasional arthralgias. CENTRAL NERVOUS SYSTEM: No stroke, TIA or seizure. PSYCHIATRIC: No anxiety or depression. SKIN: None. ENDOCRINE: None. PHYSICAL EXAMINATION: GENERAL: The patient is conscious, alert, oriented and comfortable at rest. VITAL SIGNS: Temperature 96.4, pulse 63, blood pressure 140/75 and 97% pulse ox on room air. HEENT: Pupils equal and reactive. Oral mucosa moist. Head atraumatic and normocephalic. NECK: Supple. No jugular venous distention. Carotids are equally felt well. CARDIAC: Regular in rate and rhythm. S1 and S2 normal. No S3, S4 or murmurs. LUNGS: Clear to auscultate bilaterally. ABDOMEN: Soft. Bowel sounds clear. No hepatosplenomegaly. EXTREMITIES: No edema, cyanosis or clubbing. CRANIAL NERVOUS SYSTEM: No lateralizing signs. DIAGNOSTIC DATA: WBC 9.9, hemoglobin 16, hematocrit 47.7 and platelet count 187. Sodium 139, potassium 4.0. chloride 103, carbon dioxide 30, BUN 14, creatinine 0.99, proBNP less than 30 and troponin negative. EKG shows normal sinus rhythm, no significant ST-T changes. The patient had a CT of the chest, which showed no evidence of aortic dissection, 4-mm pulmonary nodule, right hilar lymph node 4.1 cm, cholelithiasis, bladder distention, colonic diverticular disease and adrenal nodule 3.1 cm. ASSESSMENT: 1. A 79-year-old male with coronary artery disease status post obtuse marginal 1 stenting on 02/04 and RPDA stenting on 02/14/2025. Continue aspirin and Plavix. 2. Diabetes, hypertension and hyperlipidemia. Extensively counseled on the coronary risk factor modification to keep A1c less than 6% and LDL less than 70 mg% and systolic blood pressure 130 mmHg. EAR Sue MD TID: [id number] RECEIPT: [id number] NAVDEEP/NORM VILLALBA
[2025-03-18 06:28] LABS: MEAN PLATELET VOLUME 7.6 FL (7.4-10.4); RED CELL DISTRIBUTION WIDTH 14.4 % (11.5-14.5)
[2025-03-18 06:51] LABS: CREATININE 0.94 MG/DL (0.60-1.10); TOTAL CARBON DIOXIDE 26.5 MMOL/L (24-32); eCRCL 62 ML/MIN; eGFR 78 ML/MIN
[2025-03-18] MEDS ORDERED: aminophylline 250mg/10ml inj. IV PRN (07:25)
[2025-03-18] MEDS ORDERED: metoprolol tartrate 1mg/ml inj IV PRN (07:25)
[2025-03-18] MEDS: isosorbide mononitrate 30mg tab.SR.24H PO SCH (07:41)
[2025-03-18] MEDS: regadenoson 0.4mg/5ml syringe IV PRN (10:40)
[2025-03-18] MEDS: HYDROcodone/acetaminophen 5mg/325mg tablet PO PRN (13:02)
--- NOTE | 2025-03-18 13:05 | RADIOLOGY REPORT ---
US ULTRASOUND OF ABDOMEN HISTORY: Chest pain with marked up trend of bilirubin and liver function tests COMPARISON: None TECHNIQUE: Transverse and longitudinal grayscale and color sonographic images were obtained of the abdomen. FINDINGS: Liver: - Size: 17.3 cm - Echogenicity: Hyperechoic - Surface Contour: Smooth - Liver Lesion(s): None - Portal Vein: Patent and forward flowing. - Bile Ducts: Normal. The common bile duct measures 4 mm. Gallbladder: Gallstones and sludge. The sonographic jaramillo sign is negative. Pancreas: Portions not obscured by bowel gas are normal. Kidneys: - Right kidney size: 10.9 cm. There is no hydronephrosis, renal calculi, or mass lesion. Aorta and Inferior Vena Cava: The visualized portions of the abdominal aorta and intrahepatic vena cava are normal. Other: None IMPRESSION: Hepatic steatosis and cholelithiasis.
--- NOTE | 2025-03-18 13:08 | RADIOLOGY REPORT ---
Procedure: NM NM MACARENA SCAN, CATH HEART CATH W/WO STENT Exam Date: 03/18/2025 09:05 AM Reason for study/Clinical History: chest pain Comparison Study: None Myocardial Perfusion Study with SPECT Technique: The patient received an intravenous injection of 8.2 mCi of technetium-99m sestamibi while at rest. After a short delay, SPECT tomographic images of the heart were obtained. The patient then went to the stress lab where they received an intravenous Lexiscan utilizing standard protocol. 36.1 mCi of technetium-99m sestamibi was injected intravenously immediately after the start of the infusion. Gated SPECT tomographic images of the heart were acquired and processed. Findings: Rotating planar images show no significant attenuation artifact. The left ventricular size is within normal limits. Stress tomographic images demonstrate normal perfusion. Resting tomographic images demonstrate a similar pattern. Gated portion of the study shows normal wall motion and myocardial thickening. The left ventricular ejection fraction is 72%. (normal greater than 50%) Impression: Normal left ventricular size, wall motion, and function, without evidence of infarction or of myocardium at ischemic risk. The left ventricular ejection fraction is 72%.
--- NOTE | 2025-03-18 16:16 | PROGRESS NOTE- Residence ---
Progress Note - Resident Providers to CC Resident Creating Document: EDUARDO BURTONTIK, RES ~ Antibiotic Timeout Antibiotic Ordered?: No Subjective Patient is seen and examined at the bedside today. Patient denied any current chest pain, shortness of breath, nausea, vomiting or any other new concerns or complaints. He reported that he had some chest pain earlier today morning. Mostly in the epigastric region. Nonradiating. Denied any associated increased sweating, shortness of breaths. Patient was also seen walking on the floor. There was no reproduction of the chest pain with the exertion. Objective Vital Signs Date Time Temp Pulse Resp B/P (MAP) Pulse Ox O2 Delivery O2 Flow Rate FiO2 03/18/25 13:02 19 03/18/25 11:01 67 113/59 92 Room Air 03/18/25 06:57 97.1 03/17/25 02:00 0.0 21 Result Diagram: 03/18/25 0611 03/18/25 0611 General: Awake and Alert, no acute distress. HEENT: Conjunctiva pink, Sclera clear, Mucus Membranes moist. Neck: Supple without masses and tenderness. Resp: Unlabored. Lungs clear to auscultation bilaterally. Heart: Regular Rate and rhythm, normal S1 and S2 without murmur, rub or gallop. Abdomen: Soft and non tender no organomegaly Extremities: No cyanosis,clubbing or edema. Skin: Warm and Dry. Neurology: Cranial nerves 2-12 intact. No focal motor or sensory deficits. Assessment Assessment Since 9 years old male with past medical history of diabetes, hypertension, hyperlipidemia, coronary artery disease status post stenting, ulcerative colitis the admitted in the hospital for evaluation management of chest pain. Plan Plan Chest pain, most likely noncardiac. 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 He received torrie stent with 0% residual stenosis and good anterograde flow. The patient's troponins has been negative patient EKG negative for any acute ST segment changes. We will repeat EKG in the a.m. tomorrow. Patient has a Lexiscan done today which was negative for any reversible ischemia. There is also suspicion for underlying biliary colic causing the patient's chest pain. He had elevated bilirubin of 4.0, AST of 364, ALT 316, ALP of 138. Ultrasound of the abdomen significant for hepatic steatosis and cholelithiasis. Patient is planned to get MRCP for further evaluation for choledocholithiasis. Continue management as per the primary care team. Continue uninterrupted aspirin and Plavix in view of the recent stenting. Started the patient on Imdur 30 p.o. daily. Hypertension Hyperlipidemia Continue home lisinopril 30 mg p.o. daily, atorvastatin 80 mg p.o. HS. Intermittent hematuria Patient on aspirin and Plavix at home. Suspect genitourinary lesion Recommend follow up with outpatient Urology. GERD Continue famotidine 20 mg p.o. daily. Other comorbidities include mild obesity. Recommend lifestyle modifications. CODE STATUS: Full code DVT prophylaxis: SCDs GI prophylaxis: Famotidine Eduardo Burton MD Internal Medicine Resident, PGY-3 Date of Service: Mar 18, 2025 Billing Provider: YOANDY ZAMUDIO MD, SURYA PRATIK, RES Mar 18, 2025 16:16
--- NOTE | 2025-03-18 18:14 | PROGRESS NOTE ---
Daily Progress Note Providers to CC ~ Antibiotic Timeout Antibiotic Ordered?: No Subjective The patient is Lexiscan stress test was normal without any reversible ischemia the images were reviewed by both myself and Dr. Sue. The patient is bilirubin has markedly up trended today to 4.0 as well as the patient's AST and ALT and a abdominal ultrasound demonstrated cholelithiasis and sludge that is I have ordered an MRCP for further evaluation Objective Vital Signs Date Time Temp Pulse Resp B/P (MAP) Pulse Ox O2 Delivery O2 Flow Rate FiO2 03/18/25 15:00 97.5 57 22 110/60 (77) 97 Room Air 03/17/25 02:00 0.0 21 Result Diagram: 03/18/25 0611 03/18/25 0611 Gen. 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 Sue cardiology is following in ordered a Lexiscan stress test for tomorrow morning 03/18/2025 and added Imdur 30 mg p.o. daily 03/18/2025- Lexiscan stress test is negative # coronary artery disease Status post angioplasty stent to the obtuse marginal branch Continue aspirin Continue Plavix # type 2 diabetes mellitus Hyper and hypoglycemic protocol # hyperlipidemia Continue Crestor # marked up trend in bilirubin and AST and ALT Gallbladder ultrasound demonstrated cholelithiasis and sludge however there was no documentation of pericholecystic fluid or inflammation of the gallbladder. The patient did have a negative Donnelly sign on exam as well I have ordered an MRCP for further evaluation of the ductal system for possible choledocholithiasis and will monitor CMP daily. # DVT prophylaxis SCDs Aspirin and Plavix Date of Service: Mar 18, 2025 Billing Provider: STEPHAN BOLTON DO Common Visit Codes: [id number] INP/OBS CARE(HIGH) STEPHAN BOLTON DO Mar 18, 2025 18:14
[2025-03-19] VITALS (8 sets, daily range): BP systolic 109–139; BP diastolic 68–82; PULSE 55–70; RESP 8–29; TEMP 96.7–98.4; O2SAT 93–97
[2025-03-19 07:22] LABS: MEAN PLATELET VOLUME 7.9 FL (7.4-10.4); RED CELL DISTRIBUTION WIDTH 14.4 % (11.5-14.5)
[2025-03-19 07:38] LABS: CREATININE 1.00 MG/DL (0.60-1.10); TOTAL CARBON DIOXIDE 26.9 MMOL/L (24-32); eCRCL 58 ML/MIN; eGFR 72 ML/MIN
--- NOTE | 2025-03-19 10:43 | RADIOLOGY REPORT ---
PROCEDURE: MR MRCP Indication: Eval for choledocholithiasis COMPARISON: 03/18/2025 TECHNIQUE: Multiplanar multisequence images of the abdomen are obtianed per MRCP protocol. FINDINGS: Cholelithiasis. Pericholecystic/ gallbladder wall edema. The common bile duct measures 6 mm. No significant intrahepatic duct dilatation. Pancreatic duct normal in caliber measuring 3 mm. Left adrenal adenoma measuring 3.2 cm. Spleen unremarkable. Pancreatic body T2 bright lesion measuring 10 mm Kidneys demonstrate no hydronephrosis. Bilateral renal cysts including left renal cysts measuring up to 1.5 cm. Stomach is partially distended. The imaged small bowel loops are normal in caliber. Colonic diverticular disease. IMPRESSION: Cholelithiasis and pericholecystic / gallbladder wall edema, concerning for cholecystitis. Recommend HIDA scan to exclude cholecystitis. Common bile duct diameter at the upper limits of normal measuring 6 mm. No evidence for choledocholithiasis. A 3.2 cm left adrenal adenoma. 10 mm T2 bright/cystic lesion near the pancreatic distal body which could be secondary to IPMN, cyst, pseudocyst, cystic neoplasm. Recommend MRI abdomen with and without contrast and then if no evidence for enhancement, follow-up MRI abdomen /MRCP in 1 year Other findings as described
--- NOTE | 2025-03-19 12:23 | PROGRESS NOTE- Residence ---
Progress Note - Resident Providers to CC Resident Creating Document: EDUARDO BURTON REJI, KATHY ~ Antibiotic Timeout Antibiotic Ordered?: No Subjective Patient seen and examined bedside today. Patient reports one episode of epigastric abdominal pain when in the lateral for a few minutes but currently denied any chest pain, palpitations, shortness of breath, nausea, vomiting, dizziness. He is planned to undergo an MRCP today for evaluation and possible choledocholithiasis. Objective Vital Signs Date Time Temp Pulse Resp B/P (MAP) Pulse Ox O2 Delivery O2 Flow Rate FiO2 03/19/25 06:00 96.9 66 20 139/82 (101) 97 Room Air 03/17/25 02:00 0.0 21 Result Diagram: 03/19/2564503/19/25645 General: Awake and Alert, no acute distress. HEENT: Conjunctiva pink, Sclera clear, Mucus Membranes moist. Neck: Supple without masses and tenderness. Resp: Unlabored. Lungs clear to auscultation bilaterally. Heart: Regular Rate and rhythm, normal S1 and S2 without murmur, rub or gallop. Abdomen: Soft and non tender no organomegaly Extremities: No cyanosis,clubbing or edema. Skin: Warm and Dry. Neurology: Cranial nerves 2-12 intact. No focal motor or sensory deficits. Assessment Assessment [age] years old male with past medical history of diabetes, hypertension, hyperlipidemia, coronary artery disease status post stenting, ulcerative colitis the admitted in the hospital for evaluation management of chest pain. The patient's chest pain and abuse more epigastric. He had ultrasound of the abdomen which was positive for cholelithiasis. The patient is currently being evaluated possible cholecystitis. Plan Plan Chest pain, most likely noncardiac. 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 He received torrie stent with 0% residual stenosis and good anterograde flow. The patient's troponins has been negative patient EKG negative for any acute ST segment changes. Patient had a Lexiscan done yesterday which was negative for any reversible ischemia. Continue uninterrupted aspirin and Plavix in view of the recent stenting. Started the patient on Imdur 30 p.o. daily. Biliary colic Possible underlying cholecystitis The patient's chest pain appears to be more likely an epigastric pain that is possibly secondary to underlying cholelithiasis. The patient's total bilirubin is trending up. 6.6 today. Ultrasound of the abdomen was done which was significant for hepatic steatosis and cholelithiasis. The patient had MRCP which shows cholelithiasis and pericholecystic gallbladder wall edema concerning for cholecystitis and recommended HIDA scan. Hypertension Hyperlipidemia Continue home lisinopril 30 mg p.o. daily, atorvastatin 80 mg p.o. HS. Intermittent hematuria Patient on aspirin and Plavix at home. Suspect genitourinary lesion Recommend follow up with outpatient Urology. GERD Continue famotidine 20 mg p.o. daily. Other comorbidities include mild obesity. Recommend lifestyle modifications. CODE STATUS: Full code DVT prophylaxis: SCDs GI prophylaxis: Famotidine Eduardo Burton MD Internal Medicine Resident, PGY-3 Patient seen and examined by Dr. Rin BRITO. Patient having further GI studies tomorrow Date of Service: Mar 19, 2025 Billing Provider: YOANDY ZAMUDIO MD, SURYA PRATIK, [facility] Mar 19, 2025 12:23 YOANDY ZAMUDIO MD Mar 20, 2025 20:04
[2025-03-19] MEDS: SINCALIDE IV ONE (12:30)
[2025-03-19] MEDS: NORMAL SALINE IV ONE (12:30)
[2025-03-19] MEDS: piperacillin/tazo 4.5gm/100ml 100 ML IV SCH (15:55)
--- NOTE | 2025-03-19 20:09 | PROGRESS NOTE ---
Daily Progress Note Providers to CC ~ Antibiotic Timeout Antibiotic Ordered?: Yes Subjective Patient continues to have intermittent right upper quadrant abdominal pain that were hours after eating. His bilirubin continues to up trend an MRCP demonstrated a 10 mm cystic lesion near the pancreatic distal body. And we are attempting to transfer the patient for a EBUS and/or ERCP Objective Vital Signs Date Time Temp Pulse Resp B/P (MAP) Pulse Ox O2 Delivery O2 Flow Rate FiO2 03/19/25 16:03 18 03/19/25 15:00 98.4 60 118/77 (91) 94 Room Air 03/17/25 02:00 0.0 21 Result Diagram: 03/19/25 0646 03/19/25 0646 Gen. 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 Sue cardiology is following in ordered a Lexiscan stress test for tomorrow morning 03/18/2025 and added Imdur 30 mg p.o. daily 03/18/2025- Lexiscan stress test is negative # coronary artery disease Status post angioplasty stent to the obtuse marginal branch Continue aspirin Continue Plavix # type 2 diabetes mellitus Hyper and hypoglycemic protocol # hyperlipidemia Continue Crestor # marked up trend in bilirubin and AST and ALT Gallbladder ultrasound demonstrated cholelithiasis and sludge however there was no documentation of pericholecystic fluid or inflammation of the gallbladder. The patient did have a negative Donnelly sign on exam as well I have ordered an MRCP for further evaluation of the ductal system for possible choledocholithiasis and will monitor CMP daily. 03/19 bilirubin continues to up trend in his 6.6 today an MRCP was obtained with the following findings: "Cholelithiasis and pericholecystic / gallbladder wall edema, concerning for cholecystitis. Recommend HIDA scan to exclude cholecystitis. Common bile duct diameter at the upper limits of normal measuring 6 mm. No evidence for choledocholithiasis. A 3.2 cm left adrenal adenoma. 10 mm T2 bright/cystic lesion near the pancreatic distal body which could be secondary to IPMN, cyst, pseudocyst, cystic neoplasm. Recommend MRI abdomen with and without contrast and then if no evidence for enhancement, follow-up MRI abdomen /MRCP in 1 year" A HIDA scan is ordered for the a.m. since the patient had a Lexiscan yesterday and that has an additional day that has required prior to obtaining HIDA scan Case management is working on transferring the patient to a tertiary center for EBUS/possible ERCP # DVT prophylaxis SCDs Aspirin and Plavix Date of Service: Mar 19, 2025 Billing Provider: STEPHAN BOLTON DO Common Visit Codes: [id number] INP/OBS CARE(HIGH) STEPHAN BOLTON DO Mar 19, 2025 20:09
[2025-03-20] VITALS (8 sets, daily range): BP systolic 119–132; BP diastolic 70–85; PULSE 46–62; RESP 13–22; TEMP 97.4–98.6; O2SAT 93–98
[2025-03-20 00:57] LABS: LEUKOCYTE ESTERASE ,URINE NEGATIVE (Neg); NITRITES, URINE NEGATIVE (Neg); OCCULT BLOOD,URINE SMALL (Neg)
[2025-03-20 01:06] LABS: UA COLLECTION TYPE CLN CATCH MIDSTREAM
[2025-03-20 01:08] LABS: MUCUS STRANDS NONE SEEN /LPF (Neg); SQUAMOUS EPITHELIAL CELL,UR NONE SEEN /LPF (FEW)
[2025-03-20 06:13] LABS: MEAN PLATELET VOLUME 8.1 FL (7.4-10.4); RED CELL DISTRIBUTION WIDTH 14.5 % (11.5-14.5)
[2025-03-20 06:26] LABS: CREATININE 1.14 MG/DL (0.60-1.10); TOTAL CARBON DIOXIDE 26.4 MMOL/L (24-32); eCRCL 51 ML/MIN; eGFR 62 ML/MIN
[2025-03-20] MEDS ORDERED: NORMAL SALINE IV ONE (08:10)
[2025-03-20] MEDS ORDERED: SINCALIDE IV ONE (08:10)
[2025-03-20] MEDS: SINCALIDE IV ONE (08:36)
[2025-03-20] MEDS: NORMAL SALINE IV ONE (08:36)
--- NOTE | 2025-03-20 09:52 | RADIOLOGY REPORT ---
CLINICAL INFORMATION: Cholelithiasis. Abnormal findings on MRCP. Epigastric pain. Elevated total bilirubin. TECHNIQUE: 5.6 mCi of Choletec were administered intravenously. Images of the upper abdomen were obtained at multiple intervals up to a total time of 60 minutes. Subsequently, 2.02 mcg Kinevac was administered intravenously, as per protocol, and repeat dynamic anterior regional images of the liver were obtained over an additional 30 minutes. A region of interest was drawn around the gallbladder, from which a gallbladder ejection fraction was obtained. Time/activity profile curves were generated. COMPARISON: None FINDINGS: There is prompt gallbladder visualization. There is prompt excretion of activity from the biliary ductal system into the small bowel. There is no evidence of acute cholecystitis. The gallbladder ejection fraction is calculated to be 100%. IMPRESSION: 1. No scintigraphic evidence of acute cholecystitis. 2. Hyperkinetic gallbladder ejection fraction of 100%, may be seen with hyperkinetic functional gallbladder disorder in the appropriate clinical setting.
[2025-03-20] MEDS: ondansetron/PF 4mg/2ml inj IV PRN (14:24)
--- NOTE | 2025-03-20 16:17 | PROGRESS NOTE- Residence ---
Progress Note - Resident Providers to CC Resident Creating Document: EDUARDO BURTON REJI, KATHY ~ Antibiotic Timeout Antibiotic Ordered?: Yes Subjective Patient seen and examined at the bedside today. Denied any episodes of chest pain since last night. Denied any current chest pain, shortness of breaths, palpitations, dizziness, nausea, vomiting. There were no acute overnight events reported. Objective Vital Signs Date Time Temp Pulse Resp B/P (MAP) Pulse Ox O2 Delivery O2 Flow Rate FiO2 03/20/25 15:00 98.3 55 18 119/75 (90) 98 Room Air 03/20/25 08:00 0.0 21 Result Diagram: 03/20/2552603/20/25526 General: Awake and Alert, no acute distress. HEENT: Conjunctiva pink, Sclera clear, Mucus Membranes moist. Neck: Supple without masses and tenderness. Resp: Unlabored. Lungs clear to auscultation bilaterally. Heart: Regular Rate and rhythm, normal S1 and S2 without murmur, rub or gallop. Abdomen: Soft and non tender no organomegaly Extremities: No cyanosis,clubbing or edema. Skin: Warm and Dry. Neurology: Cranial nerves 2-12 intact. No focal motor or sensory deficits. Assessment Assessment [age] years old male with past medical history of diabetes, hypertension, hyperlipidemia, coronary artery disease status post stenting, ulcerative colitis the admitted in the hospital for evaluation management of chest pain. The patient's chest pain appears more to be in the epigastric region and related to his gallbladder. He underwent HIDA scan today which is significant for hyperkinetic functional gallbladder disorder. Plan Plan Chest pain, most likely noncardiac. The patient has a history of coronary artery disease status post NIGHT CLERK stenting of obtuse marginal branch on 03/14/2025. He received torrie stent with 0% residual stenosis and good anterograde flow. The patient's troponins has been negative patient EKG negative for any acute ST segment changes. Patient had a Lexiscan done yesterday which was negative for any reversible ischemia. Continue uninterrupted aspirin and Plavix in view of the recent stenting. Started the patient on Imdur 30 p.o. daily. Biliary colic Hyperkinetic functional gallbladder disorder Cholelithiasis The patient's chest pain appears to be more likely an epigastric pain that is possibly secondary to hyperkinetic functional gallbladder disorder. The patient's bilirubin started trending down. 4.9 today. Ultrasound of the abdomen was done which was significant for hepatic steatosis and cholelithiasis. The patient had MRCP which shows cholelithiasis and pericholecystic gallbladder wall edema concerning for cholecystitis and recommended HIDA scan. The HIDA scan is negative for any acute cholecystitis but is significant for hyperkinetic functional gallbladder disorder. Patient restarted on dicyclomine. Continue management per primary care team. Hypertension Hyperlipidemia Continue home lisinopril 30 mg p.o. daily, atorvastatin 80 mg p.o. HS. Intermittent hematuria Patient on aspirin and Plavix at home. Suspect genitourinary lesion Recommend follow up with outpatient Urology. GERD Continue famotidine 20 mg p.o. daily. Other comorbidities include mild obesity. Recommend lifestyle modifications. CODE STATUS: Full code DVT prophylaxis: SCDs GI prophylaxis: Famotidine Eduardo Burton MD Internal Medicine Resident, PGY-3 Patient seen and examined by Dr. Rin BRITO. Patient being evaluated by hospitalist for transferred to tertiary care. Date of Service: Mar 20, 2025 Billing Provider: YOANDY ZAMUDIO MD, SURYA PRATIK, RES Mar 20, 2025 16:17 YOANDY ZAMUDIO MD Mar 20, 2025 20:05
--- NOTE | 2025-03-20 20:28 | PROGRESS NOTE ---
Daily Progress Note Providers to CC ~ Antibiotic Timeout Antibiotic Ordered?: Yes Subjective The patient has a HIDA scan today which demonstrated an EF of 100% I discussed this finding with surgeon Dr. Zaman and after discussing the pancreatic findings as well Dr. Zaman informed me that is during the ERCP they can do manometry readings of the CBD and sampled the bile salts from the gallbladder. Dr. Zaman also recommended Bentyl Objective Vital Signs Date Time Temp Pulse Resp B/P (MAP) Pulse Ox O2 Delivery O2 Flow Rate FiO2 03/20/25 15:00 98.3 55 18 119/75 (90) 98 Room Air 03/20/25 08:00 0.0 21 Result Diagram: 03/20/2552603/20/25526 Gen. 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 Sue cardiology is following in ordered a Lexiscan stress test for tomorrow morning 03/18/2025 and added Imdur 30 mg p.o. daily 03/18/2025- Lexiscan stress test is negative # coronary artery disease Status post angioplasty stent to the obtuse marginal branch Continue aspirin Continue Plavix # type 2 diabetes mellitus Hyper and hypoglycemic protocol # hyperlipidemia Continue Crestor # marked up trend in bilirubin and AST and ALT Gallbladder ultrasound demonstrated cholelithiasis and sludge however there was no documentation of pericholecystic fluid or inflammation of the gallbladder. The patient did have a negative Donnelly sign on exam as well I have ordered an MRCP for further evaluation of the ductal system for possible choledocholithiasis and will monitor CMP daily. 03/19 bilirubin continues to up trend in his 6.6 today an MRCP was obtained with the following findings: "Cholelithiasis and pericholecystic / gallbladder wall edema, concerning for cholecystitis. Recommend HIDA scan to exclude cholecystitis. Common bile duct diameter at the upper limits of normal measuring 6 mm. No evidence for choledocholithiasis. A 3.2 cm left adrenal adenoma. 10 mm T2 bright/cystic lesion near the pancreatic distal body which could be secondary to IPMN, cyst, pseudocyst, cystic neoplasm. Recommend MRI abdomen with and without contrast and then if no evidence for enhancement, follow-up MRI abdomen /MRCP in 1 year" HIDA scan demonstrated hyper functioning gallbladder of 100% EF. I discussed this finding with surgeon Dr. Zaman and after discussing the pancreatic findings as well Dr. Zaman informed me that is during the ERCP they can do manometry readings of the CBD and sampled the bile salts from the gallbladder. Dr. Zaman also recommended Bentyl. Case management is working on transferring the patient to a tertiary center for EBUS/possible ERCP # DVT prophylaxis SCDs Aspirin and Plavix Date of Service: Mar 20, 2025 Billing Provider: STEPHAN BOLTON DO Common Visit Codes: [id number] INP/OBS CARE(HIGH) STEPHAN BOLTON DO Mar 20, 2025 20:28
[2025-03-21] VITALS (8 sets, daily range): BP systolic 122–144; BP diastolic 71–80; PULSE 47–66; RESP 12–29; TEMP 97.2–98.6; O2SAT 92–96
[2025-03-21 06:39] LABS: MEAN PLATELET VOLUME 8.0 FL (7.4-10.4); RED CELL DISTRIBUTION WIDTH 14.4 % (11.5-14.5)
[2025-03-21 06:53] LABS: CREATININE 1.03 MG/DL (0.60-1.10); TOTAL CARBON DIOXIDE 25.8 MMOL/L (24-32); eCRCL 56 ML/MIN; eGFR 70 ML/MIN
--- NOTE | 2025-03-21 10:37 | PROGRESS NOTE- Residence ---
Progress Note - Resident Providers to CC Resident Creating Document: EDUARDO BURTON KATHY MENDOZA ~ Antibiotic Timeout Antibiotic Ordered?: Yes Subjective Patient seen and examined at the bedside today. The patient currently denied any further episodes chest pain, nausea, vomiting. No acute overnight events were reported. The patient is diagnosed with a hyperkinetic function gallbladder disorder and is planned to be transferred to a tertiary care center for further evaluation of of the hyperkinetic gallbladder and also the pancreatic cystic later with the ERCP/EUS. Objective Vital Signs Date Time Temp Pulse Resp B/P (MAP) Pulse Ox O2 Delivery O2 Flow Rate FiO2 03/21/25 08:46 50 03/21/25 02:00 98.6 19 122/72 (89) 92 Room Air 03/20/25 08:00 0.0 21 Result Diagram: 03/21/25 0556 03/21/25 0556 General: Awake and Alert, no acute distress. HEENT: Conjunctiva pink, Sclera clear, Mucus Membranes moist. Neck: Supple without masses and tenderness. Resp: Unlabored. Lungs clear to auscultation bilaterally. Heart: Regular Rate and rhythm, normal S1 and S2 without murmur, rub or gallop. Abdomen: Soft and non tender no organomegaly Extremities: No cyanosis,clubbing or edema. Skin: Warm and Dry. Neurology: Cranial nerves 2-12 intact. No focal motor or sensory deficits. Assessment Assessment [age] years old male with past medical history of diabetes, hypertension, hyperlipidemia, coronary artery disease status post stenting, ulcerative colitis the admitted in the hospital for evaluation management of chest pain. The patient's chest pain appears more to be in the epigastric region and related to his gallbladder. He underwent HIDA scan today which is significant for hyperkinetic functional gallbladder disorder. Plan Plan Chest pain, most likely noncardiac. 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 He received torrie stent with 0% residual stenosis and good anterograde flow. The patient's troponins has been negative patient EKG negative for any acute ST segment changes. Patient had a Lexiscan done yesterday which was negative for any reversible ischemia. Continue uninterrupted aspirin and Plavix in view of the recent stenting. Started the patient on Imdur 30 p.o. daily. Biliary colic Hyperkinetic functional gallbladder disorder Cholelithiasis Pancreatic cyst The patient's chest pain appears to be more likely an epigastric pain that is possibly secondary to hyperkinetic functional gallbladder disorder. The patient's bilirubin started trending down. 4.9 today. Ultrasound of the abdomen was done which was significant for hepatic steatosis and cholelithiasis. The patient had MRCP which shows cholelithiasis and pericholecystic gallbladder wall edema concerning for cholecystitis and recommended HIDA scan. The HIDA scan is negative for any acute cholecystitis but is significant for hyperkinetic functional gallbladder disorder. Patient is started on dicyclomine. Continue management per primary care team. He is planned to be transferred to the tertiary care center for further management and evaluation of the hyperkinetic functional gallbladder disorder and for pancreatic cyst. Hypertension Hyperlipidemia Continue home lisinopril 30 mg p.o. daily, atorvastatin 80 mg p.o. HS. Intermittent hematuria Patient on aspirin and Plavix at home. Suspect genitourinary lesion Recommend follow up with outpatient Urology. GERD Continue famotidine 20 mg p.o. daily. Other comorbidities include mild obesity. Recommend lifestyle modifications. CODE STATUS: Full code DVT prophylaxis: SCDs GI prophylaxis: Famotidine Eduardo Burton MD Internal Medicine Resident, PGY-3 Patient seen and examined by Dr. Rin BRITO. Patient being evaluated by hospitalist for transferred to tertiary care. Date of Service: Mar 21, 2025 Billing Provider: YOANDY ZAMUDIO MD, SURYA PRATIK, RES Mar 21, 2025 10:36 YOANDY ZAMUDIO MD Mar 21, 2025 16:59
[2025-03-21] MEDS ORDERED: ROSUVASTATIN CALCIUM 40 MG PO SCH (16:45)
[2025-03-21] MEDS ORDERED: lactose-reduced food (Ensure Enlive) - 237ml bottle PO SCH (17:30)
[2025-03-21] MEDS: LACTOSE-REDUCED FOOD 237ML LIQUID PO SCH (17:30)
--- NOTE | 2025-03-21 19:23 | PROGRESS NOTE ---
Daily Progress Note Providers to CC ~ Antibiotic Timeout Antibiotic Ordered?: Yes Subjective The patient states that his postprandial abdominal pain is improved with Bentyl and in fact was asymptomatic when eating dinner. I received a call from the transfer center from [facility] informed me that I will receiving a call in the a.m. from the on-call specialists Objective Vital Signs Date Time Temp Pulse Resp B/P (MAP) Pulse Ox O2 Delivery O2 Flow Rate FiO2 03/21/25 15:00 97.5 55 20 131/73 (92) 93 Room Air 03/20/25 08:00 0.0 21 Result Diagram: 03/21/25 0556 03/21/25 0556 Gen. No acute distress alert and oriented 4 Lungs clear to ascultation bilaterally, no wheezes rales or rhonchi appreciated Heart normal sinus rhythm no murmurs rubs or clicks noted Abdomen soft nontender bowel sounds are normoactive Lower extremities no clubbing cyanosis, nor edema appreciated bilaterally Problem\\Assessment\\Plan Problems/Diagnosis: (1) Chest pain # chest pain Admitted to PCU on a quality assurance monitor body Serial troponins are negative Dr. Sue cardiology is following in ordered a Lexiscan stress test for tomorrow morning 03/18/2025 and added Imdur 30 mg p.o. daily 03/18/2025- Lexiscan stress test is negative # coronary artery disease Status post angioplasty stent to the obtuse marginal branch Continue aspirin Continue Plavix # type 2 diabetes mellitus Hyper and hypoglycemic protocol # hyperlipidemia Continue Crestor # marked up trend in bilirubin and AST and ALT Gallbladder ultrasound demonstrated cholelithiasis and sludge however there was no documentation of pericholecystic fluid or inflammation of the gallbladder. The patient did have a negative Donnelly sign on exam as well I have ordered an MRCP for further evaluation of the ductal system for possible choledocholithiasis and will monitor CMP daily. 03/19 bilirubin continues to up trend in his 6.6 today an MRCP was obtained with the following findings: "Cholelithiasis and pericholecystic / gallbladder wall edema, concerning for cholecystitis. Recommend HIDA scan to exclude cholecystitis. Common bile duct diameter at the upper limits of normal measuring 6 mm. No evidence for choledocholithiasis. A 3.2 cm left adrenal adenoma. 10 mm T2 bright/cystic lesion near the pancreatic distal body which could be secondary to IPMN, cyst, pseudocyst, cystic neoplasm. Recommend MRI abdomen with and without contrast and then if no evidence for enhancement, follow-up MRI abdomen /MRCP in 1 year" HIDA scan demonstrated hyper functioning gallbladder of 100% EF. I discussed this finding with surgeon Dr. Zaman and after discussing the pancreatic findings as well Dr. Zaman informed me that is during the ERCP they can do manometry readings of the CBD and sampled the bile salts from the gallbladder. Dr. Zaman also recommended Bentyl. 03/21 I received a call from [facility] call center informed me I will receive a call in the a.m. about the transfer- the patient is transaminitis is improving That has no clear evidence that that has obstruction of the cystic duct however this can not be excluded until procedure occurs The cystic duct lesion is concerning for malignancy and the further workup for evaluation for pancreatic cancer will occur at a tertiary center Case management is working on transferring the patient to a tertiary center for EBUS/possible ERCP # DVT prophylaxis SCDs Aspirin and Plavix Date of Service: Mar 21, 2025 Billing Provider: STEPHAN BOLTON DO Common Visit Codes: [id number] INP/OBS CARE(HIGH) STEPHAN BOLTON DO Mar 21, 2025 19:23
[2025-03-21] MEDS: ROSUVASTATIN CALCIUM 40 MG PO SCH (19:31)
[2025-03-22] VITALS (9 sets, daily range): BP systolic 109–152; BP diastolic 60–91; PULSE 47–73; RESP 16–23; TEMP 96.8–97.9; O2SAT 90–98
[2025-03-22 07:57] LABS: MEAN PLATELET VOLUME 8.2 FL (7.4-10.4); RED CELL DISTRIBUTION WIDTH 14.3 % (11.5-14.5)
[2025-03-22 08:20] LABS: CREATININE 0.94 MG/DL (0.60-1.10); TOTAL CARBON DIOXIDE 23.6 MMOL/L (24-32); eCRCL 62 ML/MIN; eGFR 78 ML/MIN
--- NOTE | 2025-03-22 15:38 | PROGRESS NOTE- Residence ---
Progress Note - Resident Providers to CC Resident Creating Document: EDUARDO BURTONTIK, KATHY ~ Antibiotic Timeout Antibiotic Ordered?: Yes Subjective Patient seen and examined at the bedside today. The patient denied any new concerns or complaints. He denied any chest pains, shortness of breath, palpitation nausea, vomiting. No acute overnight events were reported. The patient is planned to be transferred to a tertiary care [facility] for EUS/ERCP in view of hyperkinetic functional gallbladder disorder. Objective Vital Signs Date Time Temp Pulse Resp B/P (MAP) Pulse Ox O2 Delivery O2 Flow Rate FiO2 03/22/25 15:00 97.1 55 16 144/88 (106) 98 Room Air 03/20/25 08:00 0.0 21 Result Diagram: 03/22/2570303/22/25 07 General: Awake and Alert, no acute distress. HEENT: Conjunctiva pink, Sclera clear, Mucus Membranes moist. Neck: Supple without masses and tenderness. Resp: Unlabored. Lungs clear to auscultation bilaterally. Heart: Regular Rate and rhythm, normal S1 and S2 without murmur, rub or gallop. Abdomen: Soft and non tender no organomegaly Extremities: No cyanosis,clubbing or edema. Skin: Warm and Dry. Neurology: Cranial nerves 2-12 intact. No focal motor or sensory deficits. Assessment Assessment [age] years old male with past medical history of diabetes, hypertension, hyperlipidemia, coronary artery disease status post stenting, ulcerative colitis the admitted in the hospital for evaluation management of chest pain. The patient's chest pain appears more to be in the epigastric region and related to his gallbladder. He underwent HIDA scan today which is significant for hyperkinetic functional gallbladder disorder. Plan Plan Chest pain, most likely noncardiac. 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 He received torrie stent with 0% residual stenosis and good anterograde flow. The patient's troponins has been negative patient EKG negative for any acute ST segment changes. Patient had a Lexiscan done yesterday which was negative for any reversible ischemia. Continue uninterrupted aspirin and Plavix in view of the recent stenting. Started the patient on Imdur 30 p.o. daily. Biliary colic Hyperkinetic functional gallbladder disorder Cholelithiasis Pancreatic cyst The patient's chest pain appears to be more likely an epigastric pain that is possibly secondary to hyperkinetic functional gallbladder disorder. The patient's bilirubin started trending down. Ultrasound of the abdomen was done which was significant for hepatic steatosis and cholelithiasis. The patient had MRCP which shows cholelithiasis and pericholecystic gallbladder wall edema concerning for cholecystitis and recommended HIDA scan. The HIDA scan is negative for any acute cholecystitis but is significant for hyperkinetic functional gallbladder disorder. Patient is started on dicyclomine. Continue management per primary care team. He is planned to be transferred to the tertiary care center for further management and evaluation of the hyperkinetic functional gallbladder disorder and for pancreatic cyst. Hypertension Hyperlipidemia Continue home lisinopril 30 mg p.o. daily, atorvastatin 80 mg p.o. HS. Intermittent hematuria Patient on aspirin and Plavix at home. Suspect genitourinary lesion Recommend follow up with outpatient Urology. GERD Continue famotidine 20 mg p.o. daily. Other comorbidities include mild obesity. Recommend lifestyle modifications. CODE STATUS: Full code DVT prophylaxis: SCDs GI prophylaxis: Famotidine Eduardo Burton MD Internal Medicine Resident, PGY-3 Patient seen and examined by Dr. Gar VC agree with resuming metoprolol when blood pressure stable. Date of Service: Mar 22, 2025 Billing Provider: YOANDY ZAMUDIO MD, SURYA PRATIK, RES Mar 22, 2025 15:38 YOANDY ZAMUDIO MD Mar 22, 2025 16:16
--- NOTE | 2025-03-22 17:03 | DISCHARGE SUMMARY ---
Discharge Summary Providers to CC ~ Discharge Summary Admission Diagnosis: Chest pain eval for mi Hospital Course DATE OF ADMISSION: 03/16/2025 DATE OF DISCHARGE: Unknown awaiting transferred to [facility] Discharge Diagnosis\Comment: Chest pain likely secondary to referred pain due to hyperkinetic gallbladder function, coronary artery disease, ick-qqtqevy-nanacfbum diabetes mellitus, hyperlipidemia, cholelithiasis, 10 mm cystic lesion near the pancreatic distal body, hyperkinetic gallbladder function with an EF of 100% Operations\Procedures: None Consultants: Adult Care Manager Dr. Sue Complications: None Condition on DC: Stable for transfer Discharge Summary: I admitted Mr. Ivory with the following HPI:This is a 79-year-old who presents to the ED with chest pain and diaphoresis which is slightly worse than what he experienced in January when he went and had a coronary angiogram with Dr. 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 The patient was placed on aspirin 162 mg daily along with Plavix. The patient symptoms today include substernal chest pressure lasting 15 minutes traveling to the back and inferiorly along with diaphoresis and shortness of the breath. The patient did take a nitroglycerin this morning with some relief. The patient's EKG was negative for any acute ischemia and serial high sensitivity troponins are negative x 3 (7,8,9). The patient is admitted to PCU on a hospital monitor and I spoke with Dr. Sue who has a agreed to consult on the patient.- a Lexiscan stress test was negative for any reversible ischemia that is the patient is chest pain was not related to cardiac ischemia or angina there were multiple findings however on abdominal imaging including a gallbladder ultrasound that demonstrated cholelithiasis and sludge however no documented ericholecystic fluid or inflammation of the gallbladder- The patient has a marked the patient and his liver function tests on the an d a bilirubin that peaked at 6.6 and an MRCP was ordered which demonstrated a common bile duct the diameter of the upper limits of normal of 6 mm however no evidence of choledocholithiasis the patient did have a 10 mm lesion near the pancreatic distal body that was concerning that is a transfer was initiated by case management the also with some concerns for possible cholecystitis and a HIDA scan was obtained which demonstrated a gallbladder EF of 100% I did discuss this with the bariatric surgeon Dr. Zaman who recommended transferring the patient both in regards to the pancreatic mass in the change in liver function as well as the hyperkinetic gallbladder for possible manometry of the common bile duct and sampling of the bile salts as well as various other studies and Dr. Zaman recommended Bentyl which did help relieve the patient's symptoms the patient prior to starting Bentyl was experiencing abdominal discomfort a couple of hours after eating and would break into sweats. The patient had a serum lipase that has well within normal limits of [id number] are normal range. The patient has hri-ambutwi-lrnoulwlm diabetes mellitus his blood sugars were controlled for the last majority of the hospitalization Gen. No acute distress alert and oriented 4 Lungs clear to ascultation bilaterally, no wheezes rales or rhonchi appreciated Heart normal sinus rhythm no murmurs rubs or clicks noted Abdomen soft nontender bowel sounds are normoactive Lower extremities no clubbing cyanosis, nor edema appreciated bilaterally At the time of this dictation I am awaiting to be to the GI specialist at [facility] for possible ERCP and/or EBUS. The transfer paperwork has been completed and I did speak to the transfer center last evening. The daughter informs me that the patient is well connected in regards to air transportation and has a contract both [facility] and [facility] *Problems/Diagnosis: (1) Chest pain Status: Acute Total Time Spent on D/C: > 30 Minutes Date of Service: Mar 22, 2025 Billing Provider: STEPHAN BOLTON DO Common Visit Codes: [id number]/OBS DISCH DAY >30min STEPHAN BOLTON DO Mar 22, 2025 17:03
--- NOTE | 2025-03-22 17:07 | PROGRESS NOTE ---
Daily Progress Note Providers to CC ~ Antibiotic Timeout Antibiotic Ordered?: Yes Subjective The patient is stable and sitting up in bed and continues to have relief of his postprandial abdominal discomfort with the Bentyl on board. Awaiting transferred to [facility] Objective Vital Signs Date Time Temp Pulse Resp B/P (MAP) Pulse Ox O2 Delivery O2 Flow Rate FiO2 03/22/25 15:00 97.1 55 16 144/88 (106) 98 Room Air 03/20/25 08:00 0.0 21 Result Diagram: 03/22/25 0704 03/22/25 0704 Gen. No acute distress alert and oriented 4 Lungs clear to ascultation bilaterally, no wheezes rales or rhonchi appreciated Heart normal sinus rhythm no murmurs rubs or clicks noted Abdomen soft nontender bowel sounds are normoactive Lower extremities no clubbing cyanosis, nor edema appreciated bilaterally Problem\\Assessment\\Plan Problems/Diagnosis: (1) Chest pain # chest pain Admitted to PCU on a quality assurance monitor Serial troponins are negative Dr. Sue cardiology is following in ordered a Lexiscan stress test for tomorrow morning 03/18/2025 and added Imdur 30 mg p.o. daily 03/18/2025- Lexiscan stress test is negative # coronary artery disease Status post angioplasty stent to the obtuse marginal branch Continue aspirin Continue Plavix # type 2 diabetes mellitus Hyper and hypoglycemic protocol # hyperlipidemia Continue Crestor # marked up trend in bilirubin and AST and ALT Gallbladder ultrasound demonstrated cholelithiasis and sludge however there was no documentation of pericholecystic fluid or inflammation of the gallbladder. The patient did have a negative Donnelly sign on exam as well I have ordered an MRCP for further evaluation of the ductal system for possible choledocholithiasis and will monitor CMP daily. 03/19 bilirubin continues to up trend in his 6.6 today an MRCP was obtained with the following findings: "Cholelithiasis and pericholecystic / gallbladder wall edema, concerning for cholecystitis. Recommend HIDA scan to exclude cholecystitis. Common bile duct diameter at the upper limits of normal measuring 6 mm. No evidence for choledocholithiasis. A 3.2 cm left adrenal adenoma. 10 mm T2 bright/cystic lesion near the pancreatic distal body which could be secondary to IPMN, cyst, pseudocyst, cystic neoplasm. Recommend MRI abdomen with and without contrast and then if no evidence for enhancement, follow-up MRI abdomen /MRCP in 1 year" HIDA scan demonstrated hyper functioning gallbladder of 100% EF. I discussed this finding with surgeon Dr. Zaman and after discussing the pancreatic findings as well Dr. Zaman informed me that is during the ERCP they can do manometry readings of the CBD and sampled the bile salts from the gallbladder. Dr. Zaman also recommended Bentyl. 03/21 I received a call from [facility] call center informed me I will receive a call in the a.m. about the transfer- the patient is transaminitis is improving That has no clear evidence that that has obstruction of the cystic duct however this can not be excluded until procedure occurs The cystic duct lesion is concerning for malignancy and the further workup for evaluation for pancreatic cancer will occur at a tertiary center 03/22 bilirubin and liver function tests are all downtrending significantly the patient continues to experience significant relief of the postprandial abdominal discomfort with Bentyl on board. Case management is working on transferring the patient to a tertiary center for EBUS/possible ERCP # DVT prophylaxis SCDs Aspirin and Plavix Date of Service: Mar 22, 2025 Billing Provider: STEPHAN BOLTON DO Common Visit Codes: [id number] INP/OBS CARE(HIGH) STEPHAN BOLTON DO Mar 22, 2025 17:07
[2025-03-23] VITALS (8 sets, daily range): BP systolic 101–151; BP diastolic 66–82; PULSE 47–67; RESP 14–18; TEMP 97.7–98.4; O2SAT 93–96
[2025-03-23 06:19] LABS: MEAN PLATELET VOLUME 8.0 FL (7.4-10.4); RED CELL DISTRIBUTION WIDTH 14.4 % (11.5-14.5)
[2025-03-23 06:40] LABS: CREATININE 1.10 MG/DL (0.60-1.10); TOTAL CARBON DIOXIDE 28.1 MMOL/L (24-32); eCRCL 53 ML/MIN; eGFR 65 ML/MIN
--- NOTE | 2025-03-23 19:00 | PROGRESS NOTE ---
Daily Progress Note Providers to CC ~ Antibiotic Timeout Antibiotic Ordered?: Yes Subjective The patient is liver function continues to tolerating diet without any complications on Bentyl the patient remains bradycardic night however Objective Vital Signs Date Time Temp Pulse Resp B/P (MAP) Pulse Ox O2 Delivery O2 Flow Rate FiO2 03/23/25 10:00 97.7 67 16 101/66 (78) 96 Room Air 03/23/25 00:30 0.0 21 Result Diagram: 03/23/25 0500 03/23/25 0500 Gen. 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 Sue cardiology is following in ordered a Lexiscan stress test for tomorrow morning 03/18/2025 and added Imdur 30 mg p.o. daily 03/18/2025- Lexiscan stress test is negative # coronary artery disease Status post angioplasty stent to the obtuse marginal branch Continue aspirin Continue Plavix # type 2 diabetes mellitus Hyper and hypoglycemic protocol # hyperlipidemia Continue Crestor # marked up trend in bilirubin and AST and ALT Gallbladder ultrasound demonstrated cholelithiasis and sludge however there was no documentation of pericholecystic fluid or inflammation of the gallbladder. The patient did have a negative Donnelly sign on exam as well I have ordered an MRCP for further evaluation of the ductal system for possible choledocholithiasis and will monitor CMP daily. 03/19 bilirubin continues to up trend in his 6.6 today an MRCP was obtained with the following findings: "Cholelithiasis and pericholecystic / gallbladder wall edema, concerning for cholecystitis. Recommend HIDA scan to exclude cholecystitis. Common bile duct diameter at the upper limits of normal measuring 6 mm. No evidence for choledocholithiasis. A 3.2 cm left adrenal adenoma. 10 mm T2 bright/cystic lesion near the pancreatic distal body which could be secondary to IPMN, cyst, pseudocyst, cystic neoplasm. Recommend MRI abdomen with and without contrast and then if no evidence for enhancement, follow-up MRI abdomen /MRCP in 1 year" HIDA scan demonstrated hyper functioning gallbladder of 100% EF. I discussed this finding with surgeon Dr. Zaman and after discussing the pancreatic findings as well Dr. Zaman informed me that is during the ERCP they can do manometry readings of the CBD and sampled the bile salts from the gallbladder. Dr. Zmaan also recommended Bentyl. 03/21 I received a call from [facility] call center informed me I will receive a call in the a.m. about the transfer- the patient is transaminitis is improving That has no clear evidence that that has obstruction of the cystic duct however this can not be excluded until procedure occurs The cystic duct lesion is concerning for malignancy and the further workup for evaluation for pancreatic cancer will occur at a tertiary center 03/22 bilirubin and liver function tests are all downtrending significantly the patient continues to experience significant relief of the postprandial abdominal discomfort with Bentyl on board. 03/23 liver function continues to improve Case management is working on transferring the patient to a tertiary center for EBUS/possible ERCP # DVT prophylaxis SCDs Aspirin and Plavix Date of Service: Mar 23, 2025 Billing Provider: STEPHAN BOLTON DO Common Visit Codes: [id number] INP/OBS CARE(HIGH) STEPHAN BOLTON DO Mar 23, 2025 19:00
[2025-03-24 05:45] LABS: MEAN PLATELET VOLUME 8.0 FL (7.4-10.4); RED CELL DISTRIBUTION WIDTH 14.4 % (11.5-14.5)
[2025-03-24 06:00] VITALS: BP 101/67; PULSE 50; RESP 15; TEMP 97.4; O2SAT 94
[2025-03-24 06:04] LABS: CREATININE 1.03 MG/DL (0.60-1.10); TOTAL CARBON DIOXIDE 28.2 MMOL/L (24-32); eCRCL 56 ML/MIN; eGFR 70 ML/MIN
[2025-03-24 09:32] VITALS: BP 130/73; PULSE 56; O2SAT 94
[2025-03-24 10:00] VITALS: BP 127/70; PULSE 57; RESP 16; TEMP 97.9; O2SAT 97
[2025-03-24 18:00] VITALS: BP 127/73; PULSE 65; RESP 16; TEMP 98; O2SAT 95
--- NOTE | 2025-03-24 20:15 | PROGRESS NOTE ---
Daily Progress Note Providers to CC ~ Antibiotic Timeout Antibiotic Ordered?: Yes Subjective The patient has bradycardia has improved in his heart rates in the 50s to 60s the patient's liver function continues to improve daily Objective Vital Signs Date Time Temp Pulse Resp B/P (MAP) Pulse Ox O2 Delivery O2 Flow Rate FiO2 03/24/25 10:00 97.9 57 16 127/70 (89) 97 Room Air 03/24/25 08:00 0.0 21 Result Diagram: 03/24/2541703/24/25417 Gen. 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 Sue cardiology is following in ordered a Lexiscan stress test for tomorrow morning 03/18/2025 and added Imdur 30 mg p.o. daily 03/18/2025- Lexiscan stress test is negative # coronary artery disease Status post angioplasty stent to the obtuse marginal branch Continue aspirin Continue Plavix # type 2 diabetes mellitus Hyper and hypoglycemic protocol # hyperlipidemia Continue Crestor # marked up trend in bilirubin and AST and ALT Gallbladder ultrasound demonstrated cholelithiasis and sludge however there was no documentation of pericholecystic fluid or inflammation of the gallbladder. The patient did have a negative Donnelly sign on exam as well I have ordered an MRCP for further evaluation of the ductal system for possible choledocholithiasis and will monitor CMP daily. 03/19 bilirubin continues to up trend in his 6.6 today an MRCP was obtained with the following findings: "Cholelithiasis and pericholecystic / gallbladder wall edema, concerning for cholecystitis. Recommend HIDA scan to exclude cholecystitis. Common bile duct diameter at the upper limits of normal measuring 6 mm. No evidence for choledocholithiasis. A 3.2 cm left adrenal adenoma. 10 mm T2 bright/cystic lesion near the pancreatic distal body which could be secondary to IPMN, cyst, pseudocyst, cystic neoplasm. Recommend MRI abdomen with and without contrast and then if no evidence for enhancement, follow-up MRI abdomen /MRCP in 1 year" HIDA scan demonstrated hyper functioning gallbladder of 100% EF. I discussed this finding with surgeon Dr. Zaman and after discussing the pancreatic findings as well Dr. Zaman informed me that is during the ERCP they can do manometry readings of the CBD and sampled the bile salts from the gallbladder. Dr. Zaman also recommended Bentyl. 03/21 I received a call from [facility] call center informed me I will receive a call in the a.m. about the transfer- the patient is transaminitis is improving That has no clear evidence that that has obstruction of the cystic duct however this can not be excluded until procedure occurs The cystic duct lesion is concerning for malignancy and the further workup for evaluation for pancreatic cancer will occur at a tertiary center 03/22 bilirubin and liver function tests are all downtrending significantly the patient continues to experience significant relief of the postprandial abdominal discomfort with Bentyl on board. 03/23 liver function continues to improve 03/24 liver function continues to improve daily Case management is working on transferring the patient to a tertiary center for EBUS/possible ERCP #Sinus bradycardia Heart rate is improving The patient is asymptomatic and not on any medications that would cause bradycardia # DVT prophylaxis SCDs Aspirin and Plavix Date of Service: Mar 24, 2025 Billing Provider: STEPHAN BOLTON DO Common Visit Codes: [id number] INP/OBS CARE(HIGH) STEPHAN BOLTON DO Mar 24, 2025 20:15
[2025-03-24 22:00] VITALS: BP 92/51; PULSE 54; RESP 16; TEMP 98.1; O2SAT 94
[2025-03-25 05:47] LABS: MEAN PLATELET VOLUME 8.2 FL (7.4-10.4); RED CELL DISTRIBUTION WIDTH 14.5 % (11.5-14.5)
[2025-03-25 06:00] VITALS: BP 122/74; PULSE 58; RESP 18; TEMP 97.5; O2SAT 96
[2025-03-25 06:09] LABS: CREATININE 0.98 MG/DL (0.60-1.10); TOTAL CARBON DIOXIDE 28.4 MMOL/L (24-32); eCRCL 59 ML/MIN; eGFR 74 ML/MIN
[2025-03-25 08:55] VITALS: RESP 16
[2025-03-25 10:00] VITALS: BP 129/71; PULSE 60; RESP 14; TEMP 97.6; O2SAT 93
--- NOTE | 2025-03-25 16:57 | DISCHARGE SUMMARY ---
Discharge Summary Providers to CC ~ Discharge Summary Admission Diagnosis: Chest pain eval for [place] Hospital Course DATE OF ADMISSION: 03/16/2025 DATE OF DISCHARGE: 03/25/2025 Discharge Diagnosis\Comment: Chest pain likely secondary to referred pain due to hyperkinetic gallbladder function, coronary artery disease, [id number] diabetes mellitus, hyperlipidemia, cholelithiasis, 10 mm cystic lesion near the pancreatic distal body, hyperkinetic gallbladder function with an EF of 100% Operations\Procedures: None Consultants: Atm Manager Dr. Sue Complications: None Condition on DC: Stable for transfer Discharge Summary: I admitted Mr. Ivory with the following HPI:This is a 79-year-old who presents to the ED with chest pain and diaphoresis which is slightly worse than what he experienced in January when he went and had a coronary angiogram with Dr. Sue it senior analyst - he had a 98% narrowing of the obtuse marginal and had a stent placed the patient also had 30% narrowing of the LAD and 40% narrowing of the circumflex. The patient was placed on aspirin 162 mg daily along with Plavix. The patient symptoms today include substernal chest pressure lasting 15 minutes traveling to the back and inferiorly along with diaphoresis and shortness of the breath. The patient did take a nitroglycerin this morning with some relief. The patient's EKG was negative for any acute ischemia and serial high sensitivity troponins are negative x 3 (7,8,9). The patient is admitted to PCU on a clinical research monitor and I spoke with Dr. Sue who has a agreed to consult on the patient.- a Lexiscan stress test was negative for any reversible ischemia that is the patient is chest pain was not related to cardiac ischemia or angina there were multiple findings however on abdominal imaging including a gallbladder ultrasound that demonstrated cholelithiasis and sludge however no documented ericholecystic fluid or inflammation of the gallbladder- The patient has a marked the patient and his liver function tests on the and a bilirubin that peaked at 6.6 and an MRCP was ordered which demonstrated a common bile duct the diameter of the upper limits of normal of 6 mm however no evidence of choledocholithiasis the patient did have a 10 mm lesion near the pancreatic distal body that was concerning that is a transfer was initiated by case management the also with some concerns for possible cholecystitis and a HIDA scan was obtained which demonstrated a gallbladder EF of 100% I did discuss this with the bariatric surgeon Dr. Zaman who recommended transferring the patient both in regards to the pancreatic mass in the change in liver function as well as the hyperkinetic gallbladder for possible manometry of the common bile duct and sampling of the bile salts as well as various other studies and Dr. Zaman recommended Bentyl which did help relieve the patient's symptoms the patient prior to starting Bentyl was experiencing abdominal discomfort a couple of hours after eating and would break into sweats. The patient had a serum lipase that has well within normal limits of [id number] are normal range. The patient has [id number] diabetes mellitus his blood sugars were controlled for the last majority of the hospitalization Gen. No acute distress alert and oriented 4 Lungs clear to ascultation bilaterally, no wheezes rales or rhonchi appreciated Heart normal sinus rhythm no murmurs rubs or clicks noted Abdomen soft nontender bowel sounds are normoactive Lower extremities no clubbing cyanosis, nor edema appreciated bilaterally I just spoke to the hospitalist Dr. Perla at [facility] in [place] and I have acceptance I also was informed that there IS service has a accepted the patient and will likely need an EBUS or and/or may require ERCP. The patient's labs have nearly normalized with a bilirubin today of 1.4 a AST of 44 and a ALT of 81 with an alk phos of 134 the patient continues to have sinus bradycardia intermittently however this is improved in his heart rate is now in the mid 50s to 60s. The patient was seen and evaluated on day of transfer. Time spent on discharge 40 minutes *Problems/Diagnosis: (1) Chest pain Status: Acute Total Time Spent on D/C: > 30 Minutes Date of Service: Mar 25, 2025 Billing Provider: STEPHAN BOLTON DO Common Visit Codes: [id number] DISCH DAY >30min STEPHAN BOLTON DO Mar 25, 2025 16:57
[2025-03-25 18:00] VITALS: BP 145/94; PULSE 62; RESP 14; TEMP 97.7; O2SAT 95
== END 2025-03-25 20:10 | disposition short-term general hospital (02) | DRG 445 ==
LOC: ER 13:27 → ED HOLD 16:48 → PCU 3S 19:13 → ORTHO 4S 03-23 00:34
PROVIDERS: ADMIT Family Medicine; ATTEND Family Medicine
PROC: B32T1ZZ Computerized Tomography (CT Scan) of Left Pulmonary Artery using Low Osmolar Contrast (ICD-10-PCS; 2025-03-16)
PROC: B3201ZZ Computerized Tomography (CT Scan) of Thoracic Aorta using Low Osmolar Contrast (ICD-10-PCS; 2025-03-16)
PROC: B32S1ZZ Computerized Tomography (CT Scan) of Right Pulmonary Artery using Low Osmolar Contrast (ICD-10-PCS; 2025-03-16)
PROC: 4A02XM4 Measurement of Cardiac Total Activity, External Approach (ICD-10-PCS; principal; 2025-03-18)
PROC: 3E033HZ Introduction of Radioactive Substance into Peripheral Vein, Percutaneous Approach (ICD-10-PCS; 2025-03-18)
PROC: CF141ZZ Planar Nuclear Medicine Imaging of Gallbladder using Technetium 99m (Tc-99m) (ICD-10-PCS; 2025-03-20)
DX: K82.8 Other specified diseases of gallbladder (principal); K86.2 Cyst of pancreas; K80.20 Calculus of gallbladder without cholecystitis without obstruction; K21.9 Gastro-esophageal reflux disease without esophagitis; I10 Essential (primary) hypertension; E78.5 Hyperlipidemia, unspecified; Z96.611 Presence of right artificial shoulder joint; R31.9 Hematuria, unspecified; E11.9 Type 2 diabetes mellitus without complications; I25.10 Atherosclerotic heart disease of native coronary artery without angina pectoris; E66.9 Obesity, unspecified; Z79.84 Long term (current) use of oral hypoglycemic drugs; Z79.899 Other long term (current) drug therapy; Z87.891 Personal history of nicotine dependence; Z95.5 Presence of coronary angioplasty implant and graft; Z68.34 Body mass index [BMI] 34.0-34.9, adult
CPT/HCPCS: 36415; 71045; 71275; 74175; 74181; 76700; 78227; 78452; 80048; 80053; 81001; 82948; 83690; 83735; 83880; 84484; 85025; 87081; 93005; 93017; 97116; 97161; 97530; 99285; A6258; A9500; A9537; G0378; J1815; J2405; J2543; J2785; J2805; J7030